=== PATIENT | female | born 1975 | race Caucasian/White ===

== ENCOUNTER 2020-09-19 17:15 | Emergency (ER) | payer BC, SELFPAY ==
[2020-09-19] VITALS (9 sets, daily range): BP systolic 130–165; BP diastolic 76–91; PULSE 77–132; RESP 16–35; TEMP 37.2; O2SAT 97–100
[2020-09-19] MEDS: ONDANSETRON 4 MG/2 ML INJ ×2 (17:52→19:21)
[2020-09-19 17:53] LABS: Add Manual Diff / Slide Review NO; Basophils Absolute Auto 100 /uL (0-100); Basophils Percent Auto 0.7 % (0-2); Eosinophils Absolute Auto 100 /uL (0-450); Eosinophils Percent Auto 0.4 % (2-4); Hematocrit 46.4 % (36-46); Hemoglobin 15.7 g/dL (12.0-16.0); Lymphocytes Absolute Auto 3300 /uL (1100-4500); Lymphocytes Percent Auto 16.5 % (25-40); Mean Corpuscular HGB Conc 33.9 % (30-36); Mean Corpuscular Hemoglobin 28.6 PG (26-34); Mean Corpuscular Volume 84.2 fL (80-100); Monocytes Absolute Auto 1400 /uL (0-900); Monocytes Percent Auto 7.2 % (3-14); Neutrophils Absolute Auto 15000 /uL (1500-7000); Neutrophils Percent Auto 75.2 % (50-75); Platelet Count 400 X10^3/uL (150-400); Red Blood Cell Count 5.51 X10^6/uL (4.0-5.2); Red Cell Distribution Width 15.3 % (11.6-14.8)
[2020-09-19 17:59] LABS: INR 1.2 (0.9-1.3); Prothrombin Time 13.7 SECONDS (10.1-12.7)
[2020-09-19 18:02] LABS: PTT Partial Thromboplastin Tim 38 SECONDS (26.4-36.2)
[2020-09-19 18:04] LABS: Alanine Aminotransferase 12 IU/L (<35); Alkaline Phosphatase 119 U/L (38-126); Aspartate Aminotransferase 45 IU/L (14-36); Bilirubin Total 0.9 mg/dL (0.2-1.3); Blood Urea Nitrogen 20 mg/dL (7-17); Calcium 10.4 mg/dL (8.4-10.2); Carbon Dioxide 19 mmol/L (22-32); Chloride 100 mmol/L (98-107); Estimated Glomerular Filt Rate > 60.0 mL/min (>60); Globulin 4.8 g/dL (1.7-4.1); Glucose 127 mg/dL (70-100); HEMOLYSIS 26 (0-50); Potassium 3.8 mmol/L (3.4-5.1); Sodium 135 mmol/L (137-145)
--- NOTE | 2020-09-19 18:05 | ED.GENADULT ---
HPI - General Adult General Chief complaint: Abdominal Pain Stated complaint: NOT ABLE TO HOLD THINGS DOWN GREEN STUFF Time Seen by Provider: 09/19/20 17:59 Source: patient Mode of arrival: Ambulatory Limitations: no limitations History of Present Illness HPI narrative: Patient is a 45-year-old female. Patient states she has had pancreatitis in the past has been diagnosed with chronic pancreatitis. She is new to the area (within the past 90 days) does not have a primary doctor in this area. States that she started having pain in her epigastrium worse than normal over the past several days. States it feels like her prior diagnosis of pancreatitis. She also states she has had pseudocyst in the past. Denies any fevers but states she has had a difficult time holding anything down to include fluids and solid food. Had a prescription for Zofran at home but ran out of this medicine. Has been vomiting several different colors and textures of stuff over the past several days. She is on Eliquis secondary to ?blood clots? 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 Related Data Home Medications Medication Instructions Recorded Confirmed acetaminophen [Tylenol] 1,000 mg PO BEDTIME 09/19/20 09/19/20 alprazolam [Xanax] 0.5 mg PO Q4HR PRN 09/19/20 09/19/20 amlodipine 10 mg PO DAILY 09/19/20 09/19/20 apixaban [Eliquis] 5 mg PO BID 09/19/20 09/19/20 diphenhydramine HCl 50 mg PO BEDTIME PRN 09/19/20 09/19/20 hydroxyzine HCl 75 mg PO TID PRN 09/19/20 09/19/20 [id number] [Creon] 1 cap PO TID 09/19/20 09/19/20 losartan 50 mg PO BID 09/19/20 09/19/20 ondansetron 4 mg PO Q6H PRN 09/19/20 09/19/20 oxycodone-acetaminophen 1 tab PO Q4-6H PRN 09/19/20 09/19/20 pantoprazole [Protonix] 40 mg PO DAILY 09/19/20 09/19/20 senna-docusate sodium [Senna Plus 1 tab PO BEDTIME 09/19/20 09/19/20 (senna-docusate)] Previous Rx's Medication Instructions Recorded hydrocodone-acetaminophen [[place]] 1 tab PO Q6H PRN #7 tab 09/19/20 ondansetron 4 mg PO Q6H PRN #10 tab 09/19/20 Review of Systems Constitutional Constitutional: Denies fever(s) and Denies headache(s) ENT Ears, Nose, Mouth, and Throat: Denies headache(s) Cardiovascular Cardiovascular: Denies chest pain and Denies dyspnea Respiratory Respiratory: Denies dyspnea Gastrointestinal Gastrointestinal: Reports abdominal pain, Denies change in bowel habits, Reports nausea and Reports vomiting Genitourinary Genitourinary: Denies dysuria Genitourinary: Denies dysuria Musculoskeletal Musculoskeletal: Denies arthralgias and Denies myalgias Integumentary/Breasts Skin/Breast: Denies rash Neurologic Neurologic: Denies behavioral changes and Denies headache(s) Psychiatric Psychiatric: Denies behavioral changes Hematologic/Lymphatic Comments: On anticoagulation Allergic/Immunologic Allergic/Immunologic: Denies urticaria Patient History Medical History Chronic pancreatitis Social History Smoking Status: Current every day smoker Smoking Status: Current every day smoker Exam Initial Vital Signs Initial Vital Signs: Vital Signs Temperature 99.0 F 09/19/20 17:20 Pulse Rate 132 H 09/19/20 17:20 Respiratory Rate 22 09/19/20 17:20 Blood Pressure 156/87 H 09/19/20 17:20 Pulse Oximetry 99 09/19/20 17:20 Const General: cooperative Limitations: mental status not altered [facility] Head: normal to inspection and normocephalic Resp Effort & Inspection: normal respiratory effort Auscultation: clear to auscultation bilaterally Cardio Rate: tachycardic Rhythm: regular rhythm Pulses: radial pulses present GI Inspection: non-distended Palpation: No firm and tender (Epigastric, left upper quadrant) Skin Lesions: no lesions Rashes: no rashes Neuro General: patient alert Cognition: normal cognition Speech: speech normal Extrem General: normal to inspection and capillary refill normal Psych Appearance: grossly normal and well kempt Scores GCS [place] coma scale eye opening: Spontaneous Nelda coma scale verbal response: Orientated Homeland coma scale motor response: Obey commands Homeland coma scale total score: 15 Course Orders Ordered: ED Orders 09/19/20 17:27 EKG-12 Lead Stat 09/19/20 17:43 Complete Blood Count AUTO DIFF Stat Comprehensive Metabolic Panel Stat Ethanol (ETOH) Stat Lactate (Lactic Acid) Stat Lipase Stat Partial Thromboplastin Time Stat Prothrombin Time INR Stat 09/19/20 18:44 CT abdomen pelvis w con Stat Discontinued Medications Hydrocodone Bitart/Acetaminophen (Hydrocodone/Acet 5/325 Prepack) 1 bottle MISC SEEINSTR ONE Stop: 09/19/20 20:11 Last Admin: 09/19/20 20:23 Dose: 1 bottle Documented by: RADHA Sodium Chloride (Normal Saline 0.9%) 1,000 mls @ 1,000 mls/hr IV BOLUS ONE Stop: 09/19/20 19:05 Last Infusion: 09/19/20 20:15 Dose: 0 mls/hr Documented by: Admin: 09/19/20 18:17 Dose: 1,000 mls/hr Documented by: RADHA Morphine Sulfate (Morphine 4 Mg/Ml Inj) 4 mg IV NOW ONE Stop: 09/19/20 18:07 Last Admin: 09/19/20 18:16 Dose: 4 mg Documented by: RADHA Morphine Sulfate (Morphine 4 Mg/Ml Inj) 4 mg IV NOW ONE Stop: 09/19/20 19:12 Last Admin: 09/19/20 19:21 Dose: 4 mg Documented by: RADHA Ondansetron HCl (Ondansetron 4 Mg Odt Prepack) 1 bottle MISC SEEINSTR ONE Stop: 09/19/20 20:11 Last Admin: 09/19/20 20:23 Dose: 1 bottle Documented by: RADHA Vital Signs Vital signs: Vital Signs - 8 hr 09/19/20 17:20 09/19/20 17:30 09/19/20 17:31 Temperature 99.0 F Pulse Rate 132 H 104 H 99 H Respiratory Rate 22 32 H 18 Blood Pressure 156/87 H 149/91 H Pulse Oximetry 99 99 97 09/19/20 18:00 09/19/20 18:30 09/19/20 19:09 Temperature Pulse Rate 87 82 94 H Respiratory Rate 16 24 18 Blood Pressure 147/86 H 164/86 H Pulse Oximetry 99 97 100 09/19/20 19:24 09/19/20 19:30 09/19/20 20:00 Temperature Pulse Rate 91 H 86 77 Respiratory Rate 35 H 21 20 Blood Pressure 165/91 H 130/76 146/79 H Pulse Oximetry 98 99 99 Medical Decision Making Lab Data Lab results reviewed: Yes I reviewed the patient's lab results. Result diagrams: 09/19/20 17:43 09/19/20 17:43 Labs: Lab Results 09/19/20 09/19/20 09/19/20 Range/Units 17:43 17:43 17:43 WBC 20.0 H (4.5-11.0) X10^3/uL RBC 5.51 H (4.0-5.2) X10^6/uL Hgb 15.7 (12.0-16.0) g/dL Hct 46.4 H (36-46) % MCV 84.2 (80-100) fL MCH 28.6 (26-34) PG MCHC 33.9 (30-36) % RDW 15.3 H (11.6-14.8) % Plt Count 400 (150-400) X10^3/uL Neut % (Auto) 75.2 H (50-75) % Lymph % (Auto) 16.5 L (25-40) % Davison % (Auto) 7.2 (3-14) % Eos % (Auto) 0.4 L (2-4) % Baso % (Auto) 0.7 (0-2) % Neut # (Auto) 63777 H (0249-3103) /uL Lymph # (Auto) 3300 (5262-8760) /uL Davison # (Auto) 1400 H (0-900) /uL Eos # (Auto) 100 (0-450) /uL Baso # (Auto) 100 (0-100) /uL PT 13.7 H (10.1-12.7) SECONDS INR 1.2 (0.9-1.3) APTT 38 H (26.4-36.2) SECONDS Sodium 135 L (137-145) mmol/L Potassium 3.8 (3.4-5.1) mmol/L Chloride 100 (98-107) mmol/L Carbon Dioxide 19 L (22-32) mmol/L BUN 20 H (7-17) mg/dL Creatinine 0.87 (0.52-1.04) mg/dL Estimated GFR > 60.0 (>60) mL/min BUN/Creatinine Ratio 23.0 H (6-22) Glucose 127 H (70-100) mg/dL Lactate (0.7-2.1) mmol/L Calcium 10.4 H (8.4-10.2) mg/dL Total Bilirubin 0.9 (0.2-1.3) mg/dL AST 45 H (14-36) IU/L ALT 12 (<35) IU/L Alkaline Phosphatase 119 (38-126) U/L Total Protein 9.8 H* (6.3-8.2) g/dL Albumin 5.0 (3.5-5.0) g/dL Globulin 4.8 H (1.7-4.1) g/dL Albumin/Globulin Ratio 1.0 (1.0-2.8) Lipase 4634 H (23-300) U/L Ethyl Alcohol ( - 10) mg/dL 09/19/20 09/19/20 Range/Units 17:43 17:43 WBC (4.5-11.0) X10^3/uL RBC (4.0-5.2) X10^6/uL Hgb (12.0-16.0) g/dL Hct (36-46) % MCV (80-100) fL MCH (26-34) PG MCHC (30-36) % RDW (11.6-14.8) % Plt Count (150-400) X10^3/uL Neut % (Auto) (50-75) % Lymph % (Auto) (25-40) % Davison % (Auto) (3-14) % Eos % (Auto) (2-4) % Baso % (Auto) (0-2) % Neut # (Auto) (9186-8632) /uL Lymph # (Auto) (8743-8742) /uL Davison # (Auto) (0-900) /uL Eos # (Auto) (0-450) /uL Baso # (Auto) (0-100) /uL PT (10.1-12.7) SECONDS INR (0.9-1.3) APTT (26.4-36.2) SECONDS Sodium (137-145) mmol/L Potassium (3.4-5.1) mmol/L Chloride (98-107) mmol/L Carbon Dioxide (22-32) mmol/L BUN (7-17) mg/dL Creatinine (0.52-1.04) mg/dL Estimated GFR (>60) mL/min BUN/Creatinine Ratio (6-22) Glucose (70-100) mg/dL Lactate 1.1 (0.7-2.1) mmol/L Calcium (8.4-10.2) mg/dL Total Bilirubin (0.2-1.3) mg/dL AST (14-36) IU/L ALT (<35) IU/L Alkaline Phosphatase (38-126) U/L Total Protein (6.3-8.2) g/dL Albumin (3.5-5.0) g/dL Globulin (1.7-4.1) g/dL Albumin/Globulin Ratio (1.0-2.8) Lipase (23-300) U/L Ethyl Alcohol < 10 ( - 10) mg/dL Imaging Data CT scan - abdomen/pelvis: Radiologist's Impression: [address] Scan ReportSigned Patient: Brigid Otero [facility]#: [id number]: 1975Acct:[id number]/Sex: 45 / FDate of Service: 09/19/20Loc: EDAccession Number: [id number] Procedure: CT abdomen pelvis w con Ordering Provider: Issac Mak D.O. PROCEDURE: CT ABDOMEN PELVIS W CON INDICATIONS: Epigastric, LUQ abdominal pain, history of pseudocyst TECHNIQUE: After the administration of intravenous contrast, 5 mm thick sections acquired from the diaphragm to the symphysis. 5 mm coronal and sagittal reformats were acquired. For radiation dose reduction, the following was used: automated exposure control, adjustment of mA and/or kV according to patient size. COMPARISON: None. FINDINGS: Image quality: Excellent. ABDOMEN: Lung bases: Lung bases are clear. Heart size is normal. Solid organs: Liver is normal in size and enhancement. Gallbladder is within normal limits . Biliary system is non dilated. There is severe peripancreatic fat stranding. Multiple fluid intensity foci within the pancreas are present, largest of which is within the pancreatic body/tail junction measuring 20 mm diameter. There is dilatation of the pancreatic duct within the body and tail, with a maximal diameter of roughly 4 mm. There is probable pancreas divisum. Spleen is normal in size and enhancement. No adrenal nodules. Kidneys demonstrate normal size and enhancement, without hydronephrosis. Peritoneum and bowel: Bowel loops demonstrate normal wall thickness and caliber. No free fluid or air. Nodes and vessels: No retroperitoneal or mesenteric adenopathy by size criteria. Aorta and inferior vena cava are normal in size. Miscellaneous: No ventral hernias. PELVIS: Genitourinary: Bladder wall thickness is normal. Miscellaneous: No inguinal hernias or adenopathy. Bones: No suspicious bony lesions. No vertebral body compression fractures. IMPRESSION: 1. Acute pancreatitis. 2. Multiple low-density foci within the pancreas, compatible with sequelae of prior pancreatitis with pseudocyst formation. 3. Pancreatic ductal dilatation. 4. No loculated peripancreatic fluid collection to indicate abscess. 5. Follow-up pancreatic protocol MRI with and without intravenous contrast is recommended after resolution of pancreatitis, to exclude underlying neoplasm. Dictated by: Katarina Davenport M.D. on 09/19/2020 at 19:21 Approved by: Katarina Davenport M.D. on 09/19/2020 at 19:24 ECG Data Attestation: I personally reviewed and interpreted this ECG as follows: Prior ECG tracings: not available for review Interpretation: Sinus rhythm Ventricular rate 99 Incomplete right bundle-branch block Normal axis No ST T wave changes MDM Narrative Medical decision making narrative: Patient does have a leukocytosis and was initially tachycardic however the tachycardia improved after fluids and time here in the ER and pain medicine. The CT scan was concerning for acute pancreatitis and also has pseudocyst with the patient knows about. Does have an elevated lipase. Normal bilirubin. She is anticoagulated for what appears to be a portal venous thrombosis from 100% sure this is the patient did know the diagnosis. I did discuss with her options to include coming into the emergency department versus home treatment. I offered her admission to the hospital given the fact that she does have a leukocytosis and findings consistent with pancreatitis however she wanted to try to tolerate oral fluids in the room now that her pain was controlled after medications. She was able to tolerate oral intake. Patient stated that she would like to try home treatment of her pancreatitis with nausea and pain medication. She understands that if her symptoms worsen or she develops new symptoms she needs to return to the emergency department. She was sent home with nausea and pain medicine. She was given strict return precautions. She expressed understanding and agreement. Discharge Plan Departure Patient Disposition: Home Clinical Impression: Pancreatitis Instructions: Acute Pancreatitis Activity Restrictions/Additional Instructions: Recommend taking the medications as directed. Recommend with a clear liquid diet to stay hydrated and then as your pain improves advancing your diet slowly until you are back eating normally. I recommend that you find a primary provider here in the area. This [facility] has a health resources coordinator at [phone]. You Can contact this individual during business hours to help you establish a primary provider. Return to the emergency department for any new or worsening symptoms Prescriptions: New ondansetron 4 mg tablet,disintegrating 4 mg PO Q6H PRN (Reason: nausea and vomiting) Qty: 10 RF: 0 hydrocodone-acetaminophen [[place]] 5-325 mg tablet 1 tab PO Q6H PRN (Reason: pain) Qty: 7 RF: 0 No Action losartan 50 mg Tablet 50 mg PO BID RF: 0 acetaminophen [Tylenol] 325 mg Tablet 1,000 mg PO BEDTIME RF: 0 diphenhydramine HCl 50 mg Tablet 50 mg PO BEDTIME PRN (Reason: Sleep) RF: 0 alprazolam [Xanax] 0.5 mg Tablet 0.5 mg PO Q4HR PRN (Reason: Anxiety) RF: 0 oxycodone-acetaminophen 10-325 mg Tablet 1 tab PO Q4-6H PRN (Reason: Pain (Scale Score 7-10)) RF: 0 amlodipine 10 mg Tablet 10 mg PO DAILY RF: 0 pantoprazole [Protonix] 40 mg Tablet,Delayed Release (Dr/Ec) 40 mg PO DAILY RF: 0 hydroxyzine HCl 25 mg Tablet 75 mg PO TID PRN (Reason: Anxiety) RF: 0 ondansetron 4 mg Tablet,Disintegrating 4 mg PO Q6H PRN (Reason: Nausea) RF: 0 Senna Plus (senna-docusate) Tablet 1 tab PO BEDTIME RF: 0 Creon 24,000-76,000 -120,000 unit Capsule,Delayed Release(Dr/Ec) 1 cap PO TID RF: 0 Eliquis 5 mg Tablet 5 mg PO BID RF: 0
[2020-09-19 18:06] LABS: Total Protein 9.8 g/dL (6.3-8.2)
[2020-09-19 18:16] LABS: Lactate (Lactic Acid) 1.1 mmol/L (0.7-2.1)
[2020-09-19] MEDS: MORPHINE 4 MG/ML INJ IV ×2 (18:16→19:21)
[2020-09-19] MEDS: SODIUM CHLORIDE 0.9% 1,000 ML 1000 ML IV (18:17)
[2020-09-19 18:23] LABS: Lipase 4634 U/L (23-300)
[2020-09-19 18:27] LABS: Ethanol (ETOH) < 10 mg/dL
--- NOTE | 2020-09-19 18:44 | DI.CT.S_ITS ---
PROCEDURE: CT ABDOMEN PELVIS W CON INDICATIONS: Epigastric, LUQ abdominal pain, history of pseudocyst TECHNIQUE: After the administration of intravenous contrast, 5 mm thick sections acquired from the diaphragm to the symphysis. 5 mm coronal and sagittal reformats were acquired. For radiation dose reduction, the following was used: automated exposure control, adjustment of mA and/or kV according to patient size. COMPARISON: None. FINDINGS: Image quality: Excellent. ABDOMEN: Lung bases: Lung bases are clear. Heart size is normal. Solid organs: Liver is normal in size and enhancement. Gallbladder is within normal limits . Biliary system is non dilated. There is severe peripancreatic fat stranding. Multiple fluid intensity foci within the pancreas are present, largest of which is within the pancreatic body/tail junction measuring 20 mm diameter. There is dilatation of the pancreatic duct within the body and tail, with a maximal diameter of roughly 4 mm. There is probable pancreas divisum. Spleen is normal in size and enhancement. No adrenal nodules. Kidneys demonstrate normal size and enhancement, without hydronephrosis. Peritoneum and bowel: Bowel loops demonstrate normal wall thickness and caliber. No free fluid or air. Nodes and vessels: No retroperitoneal or mesenteric adenopathy by size criteria. Aorta and inferior vena cava are normal in size. Miscellaneous: No ventral hernias. PELVIS: Genitourinary: Bladder wall thickness is normal. Miscellaneous: No inguinal hernias or adenopathy. Bones: No suspicious bony lesions. No vertebral body compression fractures. IMPRESSION: 1. Acute pancreatitis. 2. Multiple low-density foci within the pancreas, compatible with sequelae of prior pancreatitis with pseudocyst formation. 3. Pancreatic ductal dilatation. 4. No loculated peripancreatic fluid collection to indicate abscess. 5. Follow-up pancreatic protocol MRI with and without intravenous contrast is recommended after resolution of pancreatitis, to exclude underlying neoplasm. Dictated by: Katarina Davenport M.D. on 09/19/2020 at 19:21 Approved by: Katarina Davenport M.D. on 09/19/2020 at 19:24
[2020-09-19] MEDS: ONDANSETRON 4 MG ODT PREPACK 1 BOTTLE MISC (20:23)
[2020-09-19] MEDS: HYDROCODONE/ACET 5/325 PREPACK 1 BOTTLE MISC (20:23)
== END 2020-09-19 20:29 | disposition home or self-care (01) ==
PROVIDERS: Emergency Medicine; Emergency Provider Emergency Medicine
DX: K85.90 Acute pancreatitis without necrosis or infection, unspecified (principal); K86.1 Other chronic pancreatitis; Z79.01 Long term (current) use of anticoagulants; R10.9 Unspecified abdominal pain; D72.829 Elevated white blood cell count, unspecified; R00.0 Tachycardia, unspecified; R10.13 Epigastric pain; R10.12 Left upper quadrant pain
CPT/HCPCS: 36415; 74177; 80053; 80320; 83605; 83690; 85025; 85610; 85730; 93005; 96361; 96374; 96375; 96376; 99284; J2270; J2405

== ENCOUNTER 2020-09-21 19:21 | Observation (INO) | payer BC, SELFPAY ==
[2020-09-21] VITALS (8 sets, daily range): BP systolic 104–135; BP diastolic 65–76; PULSE 75–94; RESP 16; TEMP 36.5–37.1; O2SAT 98–100; BMI 26.5; BMI 28.0
[2020-09-21 20:05] LABS: Add Manual Diff / Slide Review NO; Basophils Absolute Auto 200 /uL (0-100); Basophils Percent Auto 0.9 % (0-2); Eosinophils Absolute Auto 500 /uL (0-450); Eosinophils Percent Auto 2.7 % (2-4); Hematocrit 44.9 % (36-46); Hemoglobin 15.2 g/dL (12.0-16.0); Lymphocytes Absolute Auto 3700 /uL (1100-4500); Lymphocytes Percent Auto 22.3 % (25-40); Mean Corpuscular HGB Conc 33.7 % (30-36); Mean Corpuscular Hemoglobin 28.6 PG (26-34); Mean Corpuscular Volume 84.9 fL (80-100); Monocytes Absolute Auto 1000 /uL (0-900); Neutrophils Absolute Auto 11400 /uL (1500-7000); Neutrophils Percent Auto 68.1 % (50-75); Platelet Count 343 X10^3/uL (150-400); Red Blood Cell Count 5.29 X10^6/uL (4.0-5.2); Red Cell Distribution Width 15.2 % (11.6-14.8); White Blood Cell Count 16.7 X10^3/uL (4.5-11.0)
[2020-09-21 20:16] LABS: INR 1.2 (0.9-1.3); Prothrombin Time 14.1 SECONDS (10.1-12.7)
[2020-09-21 20:19] LABS: PTT Partial Thromboplastin Tim 40 SECONDS (26.4-36.2)
[2020-09-21 20:22] LABS: Alanine Aminotransferase 12 IU/L (<35); Albumin 4.8 g/dL (3.5-5.0); Alkaline Phosphatase 107 U/L (38-126); Aspartate Aminotransferase 47 IU/L (14-36); BUN Creatinine Ratio 24.3 (6-22); Bilirubin Total 0.6 mg/dL (0.2-1.3); Blood Urea Nitrogen 18 mg/dL (7-17); Calcium 9.9 mg/dL (8.4-10.2); Carbon Dioxide 21 mmol/L (22-32); Chloride 100 mmol/L (98-107); Estimated Glomerular Filt Rate > 60.0 mL/min (>60); Globulin 4.7 g/dL (1.7-4.1); Glucose 84 mg/dL (70-100); HEMOLYSIS 23 (0-50); Lipase 1901 U/L (23-300); Potassium 3.9 mmol/L (3.4-5.1); Sodium 134 mmol/L (137-145); Total Protein 9.5 g/dL (6.3-8.2)
--- NOTE | 2020-09-21 20:45 | ED.GENADULT ---
HPI - General Adult General Chief complaint: Abdominal Pain Stated complaint: abdominal pain, vomitting Time Seen by Provider: 09/21/20 19:51 Source: patient Mode of arrival: Ambulatory Limitations: no limitations History of Present Illness HPI narrative: Patient is a 45-year-old female who I evaluated in the emergency department a couple days ago for similar symptoms that she returns with today. She does have a history of chronic pancreatitis. Does not have a primary doctor in this area. A couple days ago when I saw her she presented stating that she had pancreatitis. Had a CT scan showing pseudocysts and inflammation consistent with pancreatitis. Her lipase was elevated. She also had a leukocytosis. During that visit we did discuss admitting her to the hospital however she was able to tolerate oral intake and felt she could be discharged home with symptom treatment. After being discharged she stated that she has not been drinking very much. States that when she does drink a causes her discomfort. She is also quite a bit of nausea and has been unable to take her pain medication. No fevers. Related Data Home Medications Medication Instructions Recorded Confirmed alprazolam [Xanax] 1 mg PO TID PRN 09/19/20 09/21/20 amlodipine 10 mg PO DAILY 09/19/20 09/21/20 apixaban [Eliquis] 5 mg PO BID 09/19/20 09/21/20 hydroxyzine HCl 75 mg PO TID PRN 09/19/20 09/21/20 losartan 50 mg PO BID 09/19/20 09/21/20 pantoprazole [Protonix] 40 mg PO DAILY 09/19/20 09/21/20 senna-docusate sodium [Senna Plus 1 tab PO BEDTIME 09/19/20 09/21/20 (senna-docusate)] trazodone 50 mg PO BEDTIME PRN 09/21/20 09/21/20 Allergies Allergy/AdvReac Type Severity Reaction Status Date / Time cortisone Allergy Verified 09/21/20 19:45 Review of Systems Constitutional Constitutional: Denies fever(s) Cardiovascular Cardiovascular: Denies chest pain and Denies dyspnea Respiratory Respiratory: Denies dyspnea Gastrointestinal Gastrointestinal: Reports abdominal pain, Denies change in bowel habits, Reports nausea and Reports vomiting Genitourinary Genitourinary: Denies dysuria Genitourinary: Denies dysuria Musculoskeletal Musculoskeletal: Denies arthralgias and Denies myalgias Integumentary/Breasts Skin/Breast: Denies rash Neurologic Neurologic: Denies behavioral changes Psychiatric Psychiatric: Denies behavioral changes Hematologic/Lymphatic Hematologic/Lymphatic: Denies easy bleeding and Denies easy bruising Allergic/Immunologic Allergic/Immunologic: Denies urticaria Patient History Medical History Chronic pancreatitis Social History household members: spouse Smoking Status: Current every day smoker alcohol intake: never Smoking Status: Current every day smoker alcohol intake frequency: other Substance Use Type: does not use Exam Initial Vital Signs Initial Vital Signs: Vital Signs Temperature 98.7 F 09/21/20 19:40 Pulse Rate 90 09/21/20 19:40 Respiratory Rate 16 09/21/20 19:40 Blood Pressure 104/67 09/21/20 19:40 Pulse Oximetry 98 09/21/20 19:40 Const General: cooperative, healthy appearing and No comfortable Limitations: mental status not altered HENNJ Head: normal to inspection and normocephalic Resp Effort & Inspection: normal respiratory effort Cardio Rate: regular rate GI Inspection: non-distended Palpation: soft and tender Skin Lesions: no lesions Rashes: no rashes Neuro General: patient alert and patient awake Cognition: normal cognition Speech: speech normal Extrem General: capillary refill normal Psych Appearance: grossly normal and well kempt Course Orders Ordered: ED Orders 09/21/20 19:47 Complete Blood Count AUTO DIFF Stat Comprehensive Metabolic Panel Stat Lipase Stat Partial Thromboplastin Time Stat Prothrombin Time INR Stat 09/21/20 21:00 Urine Microscopic Stat 09/21/20 21:12 COVID19 Stat Al Hydrox/Mg Hydrox/Simethicone (Mag Hydrox/Alum/Simeth 30 Ml Udc) 30 ml PO Q6HR PRN PRN Reason: Dyspepsia Alprazolam (Alprazolam 0.5 Mg Tablet) 1 mg PO TID PRN PRN Reason: Anxiety Last Admin: 09/21/20 23:54 Dose: 1 mg Documented by: HALI Amlodipine Besylate (Amlodipine 5 Mg Tablet) 10 mg PO DAILY COUNTS INCLUDE 234 BEDS AT THE [facility] Apixaban (Apixaban 5 Mg Tablet) 5 mg PO BID COUNTS INCLUDE 234 BEDS AT THE [facility] Last Admin: 09/21/20 22:54 Dose: 5 mg Documented by: SANTIAGO Docusate Sodium (Docusate 100 Mg Capsule) 100 mg PO BID PRN PRN Reason: constipation Docusate Sodium (Docusate 100 Mg Capsule) 100 mg PO BID COUNTS INCLUDE 234 BEDS AT THE [facility] Fentanyl (Fentanyl 100 Mcg/2 Ml Inj) 25 mcg 0.35 mcg/kg (25 mcg) IV Q1HR PRN PRN Reason: Pain, Severe (7-10) Stop: 09/22/20 22:00 Last Admin: 09/21/20 23:41 Dose: 25 mcg Documented by: HALI Hydroxyzine Pamoate (Hydroxyzine Pamoate 25 Mg Capsule) 75 mg PO TID PRN PRN Reason: Anxiety Lactated Ringer's (Lactated Ringers) 1,000 mls @ 340 mls/hr IV CONT GHISLAINE Stop: 09/23/20 22:14 Last Admin: 09/21/20 22:49 Dose: 340 mls/hr Documented by: SANTIAGO Losartan Potassium (Losartan 50 Mg Tablet) 50 mg PO BID COUNTS INCLUDE 234 BEDS AT THE [facility] Last Admin: 09/21/20 22:56 Dose: 50 mg Documented by: SANTIAGO Naloxone HCl (Naloxone 0.4 Mg/Ml Vial) 0.2 mg IV Q2MIN PRN PRN Reason: Opiate Reversal Ondansetron HCl (Ondansetron 4 Mg Odt) 4 mg PO Q8HR PRN PRN Reason: Nausea And Vomiting Last Admin: 09/21/20 23:41 Dose: 4 mg Documented by: HALI Pantoprazole Sodium (Pantoprazole 40 Mg Tablet) 40 mg PO DAILY COUNTS INCLUDE 234 BEDS AT THE [facility] Sennosides (Sennosides 8.6 Mg Tablet) 1 mg PO BID COUNTS INCLUDE 234 BEDS AT THE [facility] Trazodone HCl (Trazodone 50 Mg Tablet) 50 mg PO BEDTIME PRN PRN Reason: Insomnia Last Admin: 09/21/20 23:42 Dose: 50 mg Documented by: HALI Discontinued Medications Sodium Chloride (Normal Saline 0.9%) 1,000 mls @ 1,000 mls/hr IV BOLUS ONE Stop: 09/21/20 21:47 Last Infusion: 09/21/20 21:59 Dose: 0 mls/hr Documented by: Admin: 09/21/20 21:05 Dose: 1,000 mls/hr Documented by: KARLIE Morphine Sulfate (Morphine 4 Mg/Ml Inj) 4 mg IV NOW ONE Stop: 09/21/20 20:49 Last Admin: 09/21/20 21:05 Dose: 4 mg Documented by: KARLIE Ondansetron HCl (Ondansetron 4 Mg/2 Ml Inj) 4 mg IV NOW ONE Stop: 09/21/20 21:10 Last Admin: 09/21/20 21:15 Dose: 4 mg Documented by: KARLIE Vital Signs Vital signs: Vital Signs - 8 hr 09/21/20 19:40 09/21/20 21:08 09/21/20 21:22 Temperature 98.7 F Pulse Rate 90 89 80 Respiratory Rate 16 Blood Pressure 104/67 135/75 Pulse Oximetry 98 100 100 09/21/20 21:30 09/21/20 21:32 Temperature Pulse Rate 78 94 H Respiratory Rate Blood Pressure 128/65 Pulse Oximetry 100 98 Medical Decision Making Medical Records Medical records reviewed: Yes I reviewed the patient's medical records. Lab Data Lab results reviewed: Yes I reviewed the patient's lab results. Result diagrams: 09/21/20 19:47 09/21/20 19:47 Labs: Lab Results 09/21/20 09/21/20 09/21/20 Range/Units 19:47 19:47 19:47 WBC 16.7 H (4.5-11.0) X10^3/uL RBC 5.29 H (4.0-5.2) X10^6/uL Hgb 15.2 (12.0-16.0) g/dL Hct 44.9 (36-46) % MCV 84.9 (80-100) fL MCH 28.6 (26-34) PG MCHC 33.7 (30-36) % RDW 15.2 H (11.6-14.8) % Plt Count 343 (150-400) X10^3/uL Neut % (Auto) 68.1 (50-75) % Lymph % (Auto) 22.3 L (25-40) % [place] % (Auto) 6.0 (3-14) % Eos % (Auto) 2.7 (2-4) % Baso % (Auto) 0.9 (0-2) % Neut # (Auto) 15754 H (6660-7237) /uL Lymph # (Auto) 3700 (3835-1463) /uL [place] # (Auto) 1000 H (0-900) /uL Eos # (Auto) 500 H (0-450) /uL Baso # (Auto) 200 H (0-100) /uL PT 14.1 H (10.1-12.7) SECONDS INR 1.2 (0.9-1.3) APTT 40 H (26.4-36.2) SECONDS Sodium 134 L (137-145) mmol/L Potassium 3.9 (3.4-5.1) mmol/L Chloride 100 (98-107) mmol/L Carbon Dioxide 21 L (22-32) mmol/L BUN 18 H (7-17) mg/dL Creatinine 0.74 (0.52-1.04) mg/dL Estimated GFR > 60.0 (>60) mL/min BUN/Creatinine Ratio 24.3 H (6-22) Glucose 84 (70-100) mg/dL Calcium 9.9 (8.4-10.2) mg/dL Total Bilirubin 0.6 (0.2-1.3) mg/dL AST 47 H (14-36) IU/L ALT 12 (<35) IU/L Alkaline Phosphatase 107 (38-126) U/L Total Protein 9.5 H (6.3-8.2) g/dL Albumin 4.8 (3.5-5.0) g/dL Globulin 4.7 H (1.7-4.1) g/dL Albumin/Globulin Ratio 1.0 (1.0-2.8) Lipase 1901 H D (23-300) U/L Urine RBC (0-5/HPF) Urine WBC (0-5/HPF) Ur Squamous Epith Cells (0-5/HPF) Urine Bacteria (None) Ur Culture Indicated? COVID-19 PCR (Negative) 09/21/20 09/21/20 Range/Units 21:00 21:12 WBC (4.5-11.0) X10^3/uL RBC (4.0-5.2) X10^6/uL Hgb (12.0-16.0) g/dL Hct (36-46) % MCV (80-100) fL MCH (26-34) PG MCHC (30-36) % RDW (11.6-14.8) % Plt Count (150-400) X10^3/uL Neut % (Auto) (50-75) % Lymph % (Auto) (25-40) % [place] % (Auto) (3-14) % Eos % (Auto) (2-4) % Baso % (Auto) (0-2) % Neut # (Auto) (7433-9804) /uL Lymph # (Auto) (1447-4050) /uL [place] # (Auto) (0-900) /uL Eos # (Auto) (0-450) /uL Baso # (Auto) (0-100) /uL PT (10.1-12.7) SECONDS INR (0.9-1.3) APTT (26.4-36.2) SECONDS Sodium (137-145) mmol/L Potassium (3.4-5.1) mmol/L Chloride (98-107) mmol/L Carbon Dioxide (22-32) mmol/L BUN (7-17) mg/dL Creatinine (0.52-1.04) mg/dL Estimated GFR (>60) mL/min BUN/Creatinine Ratio (6-22) Glucose (70-100) mg/dL Calcium (8.4-10.2) mg/dL Total Bilirubin (0.2-1.3) mg/dL AST (14-36) IU/L ALT (<35) IU/L Alkaline Phosphatase (38-126) U/L Total Protein (6.3-8.2) g/dL Albumin (3.5-5.0) g/dL Globulin (1.7-4.1) g/dL Albumin/Globulin Ratio (1.0-2.8) Lipase (23-300) U/L Urine RBC None seen (0-5/HPF) Urine WBC None seen (0-5/HPF) Ur Squamous Epith Cells 0-1 /hpf (0-5/HPF) Urine Bacteria None seen (None) Ur Culture Indicated? Cult not indicated COVID-19 PCR Negative (Negative) Point of Care Testing Test Results Negative Urine Dip Bedside Urine Glucose Negative Bedside Urine Bilirubin - Negative Bedside Urine Ketone + 15 Urine Specific [place] 1.010 Bedside Urine Occult Blood - Negative Bedside Urine pH 6 Bedside Urine Protein - Negative Bedside Urine Urobilinogen - Negative Bedside Urine Nitrite - Negative Bedside Urine Leukocytes - Negative Esterase Point of care testing: Point of Care Testing Test Results Negative Urine Dip Bedside Urine Glucose Negative Bedside Urine Bilirubin - Negative Bedside Urine Ketone + 15 Urine Specific [place] 1.010 Bedside Urine Occult Blood - Negative Bedside Urine pH 6 Bedside Urine Protein - Negative Bedside Urine Urobilinogen - Negative Bedside Urine Nitrite - Negative Bedside Urine Leukocytes - Negative Esterase MDM Narrative Medical decision making narrative: Patient's leukocytosis and lipase improving however she is still having quite a bit of abdominal pain and unable to tolerate oral intake or tolerate her pain medication. A few given her history and her presentation today despite the improvement in her labs that she has failed outpatient attempted treating her pancreatitis. Field admission is necessary for pain medication and IV fluids. Discussed the case with LORI Eng the [facility] provider who will admit for further evaluation and treatment. I did discuss the admission with the patient. She expressed understanding. Discharge Plan Departure Patient Disposition: Admitted As Inpatient Clinical Impression: Pancreatitis Admit Date/Time: 09/21/20 21:32 Admit Provider: Evelyn Eng
[2020-09-21] MEDS: SODIUM CHLORIDE 0.9% 1,000 ML 1000 ML IV (21:05)
[2020-09-21] MEDS: MORPHINE 4 MG/ML INJ IV (21:05)
[2020-09-21 21:14] LABS: Bacteria Urine None Seen; RBC Urine None Seen (0-5/HPF); WBC Urine None Seen (0-5/HPF)
[2020-09-21] MEDS: ONDANSETRON 4 MG/2 ML INJ IV (21:15)
[2020-09-21 21:29] LABS: Culture Indicated Urine Cult Not Indicated; Squamous Epithelial Cell Urine 0-1 /HPF (0-5/HPF)
[2020-09-21 21:37] LABS: COVID19 -Nasal RAPID Negative (Negative)
[2020-09-21] MEDS: LACTATED RINGERS 1,000 ML 340 ML IV (22:49)
[2020-09-21] MEDS: APIXABAN 5 MG TABLET PO (22:54)
[2020-09-21] MEDS: LOSARTAN 50 MG TABLET PO (22:56)
[2020-09-21] MEDS: ONDANSETRON 4 MG ODT PO (23:41)
[2020-09-21] MEDS: fentaNYL 100 MCG/2 ML INJ 25 MCG IV (23:41)
[2020-09-21] MEDS: TRAZODONE 50 MG TABLET PO (23:42)
[2020-09-21] MEDS: ALPRAZolam 0.5 MG TABLET 1 MG PO (23:54)
[2020-09-22] VITALS (7 sets, daily range): BP systolic 104–135; BP diastolic 59–75; PULSE 68–92; RESP 16; TEMP 36.1–36.8; O2SAT 96–100
[2020-09-22] MEDS: fentaNYL 100 MCG/2 ML INJ 25 MCG IV ×4 (01:55→06:25)
[2020-09-22] MEDS: MAG HYDROX/ALUM/SIMETH 30 ML UDC PO (01:55)
[2020-09-22] MEDS: hydrOXYzine pamoate 25 MG CAPSULE 75 MG PO (01:55)
[2020-09-22] MEDS: LACTATED RINGERS 1,000 ML 340 ML IV ×3 (01:56→08:18)
--- NOTE | 2020-09-22 02:18 | P.HP_ITS ---
History of Present Illness History of Present Illness Date Patient Seen: 09/21/20 Time Patient Seen: 23:33 Chief complaint: abdominal pain, vomitting Narrative: Patient is a 45-year-old female Brigid Otero who presented to the emergency department for an acute flare of her chronic pancreatitis severe abd pain, nausea, vomiting that had failed out patient management and has been unable to keep foods & fluids down x 3 days. Patient was seen and treated in the emergency room for this exacerbation on 09/19/2020. At that time her CT scan showing pseudocysts and inflammation consistent with pancreatitis, elevated lipase, and leukocytosis. Because she was able to tolerate oral intake she felt she could be discharged home with symptom treatment. She returned today to the emergency room due to worsening condition, abdominal pain and inability to keep food or fluid down. Patient was previously living in [place] and was diagnosed with chronic pancreatitis and HTN April 2020, in May of 2020 she was also found to have blood clots in the main portal vein, splenic, and superior mesenteric and now is on apixaban [address] in May in [place] demonstrated pseudocysts on her pancreas, and she was recommended to repeat her CT in November of 2020 for monitoring. Patient is taking [address] [place] 4 Capsules a pancreatic enzyme, amlodipine, losartan, Protonix, and for anxiety Ativan, trazodone, and Vistaril. Patient is admitted for exacerbation of chronic pancreatitis. Patient states she has been unable to keep down food or fluids x3 days, with severe and worsening abdominal pain epigastric that radiates around to her left and right side to her back and in between her shoulder blades. She complains of Nausea and vomiting x5 days, she states that putting pressure on her pancreas by leaning forward and heating pad had been helping but treatment failure began about 3 days ago, she denies fever body aches chills but does note positive cold sweats with hot flashes due to 2010 hysterectomy. She denies any recent blood in urine or stool, coffee-ground vomitus or black tarry stool but noted some brownish blood in vomit once within the past week. She notes that she has been having bouts of dizziness when going from sitting to standing and often after walking for long periods of time, she also has suffered since July with on and off tachycardia documented in the 160s and has felt irregular heart rate she notes that for the past 6 months she has began to fall more often when getting out of her camper to which she has now using a walker if her is not present to hold her hand. Patient expresses believes that she has increased weakness on the left side. She also notes that she has had to short events of 1-2 minutes of right-sided facial numbness and tingling and difficulty with speech twice in the past 2 months. Patient was extremely hypertensive prior to April of 2020 and now suffers from chronically hypotension due to blood pressure medication. Patient states last cardiac workup was in 2006 and was unremarkable , and does not have a deckhand fishing vessel or neurologist. Patient did go to [facility] in July after moving from floor to meet with a physician to try to establish care but did not follow-up because she felt it was too far away for her to travel. At this time patient does not have any PCP or customs import specialist. Patient denies cough shortness of breath or chest pain, patient denies any abnormal swelling of hands or feet, any abnormal bruising bleeding or wound healing. Patient had WBC 16.7, RBC 5.29, BUN 18, lipase 1901 down from 4634 on 09/19/2020, bicarb 21, total protein 9.5. Patient History Medical History (Updated 09/22/20 @ 03:14 by ROSINA Ness-ERMA) Anxiety Benign essential HTN Chronic pancreatitis Pancreatic pseudocyst Surgical History (Updated 09/22/20 @ 03:14 by ROSINA Ness-ERMA) History of appendectomy History of arthroscopy of both knees History of carpal tunnel release History of hysterectomy History of tubal ligation Hx of removal of ovary Family & Social History Family History (Updated 09/22/20 @ 03:17 by ROSINA Ness-ERMA) Mother Heart attack COPD (chronic obstructive pulmonary disease) Hyperlipidemia Hypertension Father Alcoholism and drug addiction in family Brother Diabetes mellitus Murder of relative Brother No problems noted. Social History: household members spouse Prior Living Arrangements Mobile home Safety & Behavioral: Feels Safe in Current Yes Environment Been Physically Hurt or No Threatened By a Person Suicidal Ideation Description None Suicide Plan Description No Plan Tobacco & Substance use: Tobacco type cigarettes cutting back,cannabis/marijuana 1-2 smokes daily Smoking Status Current every day smoker alcohol intake never alcohol intake frequency other Substance Use Type marijuana Meds Home Medications and Allergies Home Medications Medication Instructions Recorded Confirmed Type alprazolam [Xanax] 1 mg PO TID PRN 09/19/20 09/21/20 History amlodipine 10 mg PO DAILY 09/19/20 09/21/20 History apixaban [Eliquis] 5 mg PO BID 09/19/20 09/21/20 History hydroxyzine HCl 75 mg PO TID PRN 09/19/20 09/21/20 History losartan 50 mg PO BID 09/19/20 09/21/20 History pantoprazole [Protonix] 40 mg PO DAILY 09/19/20 09/21/20 History senna-docusate sodium [Senna Plus 1 tab PO BEDTIME 09/19/20 09/21/20 History (senna-docusate)] trazodone 50 mg PO BEDTIME PRN 09/21/20 09/21/20 History Allergies Allergy/AdvReac Type Severity Reaction Status Date / Time cortisone Allergy Verified 09/21/20 19:45 Review of Systems Constitutional Constitutional: Reports excessive sweating, Reports fatigue, Reports frequent falls and Reports weakness Eyes Eyes: Reports system reviewed and no additional complaints, except as documented ENT Ears, Nose, Mouth, and Throat: Yes system reviewed and no additional complaints, except as documented, Yes dizziness and Yes disequilibrium Cardiovascular Cardiovascular: Reports diaphoresis, Reports rapid heart rate, Reports irregular heart rhythm, Reports lightheadedness and Reports palpitations Respiratory Respiratory: Reports system reviewed and no additional complaints, except as documented Gastrointestinal Gastrointestinal: Reports nausea and Reports vomiting Genitourinary Genitourinary: Reports system reviewed and no additional complaints, except as documented and Reports hot flashes Musculoskeletal Musculoskeletal: Reports system reviewed and no additional complaints, except as documented and Reports muscle weakness Integumentary/Breasts Skin/Breast: Reports system reviewed and no additional complaints, except as documented Neurologic Neurologic: Reports abnormal speech, Reports dizziness, Reports frequent falls, Reports disequilibrium and Reports weakness Psychiatric Psychiatric: Reports system reviewed and no additional complaints, except as documented and Reports anxiety Endocrine Endocrine: Reports excessive sweating, Reports fatigue and Reports palpitations Hematologic/Lymphatic Hematologic/Lymphatic: Reports system reviewed and no additional complaints, except as documented Allergic/Immunologic Allergic/Immunologic: Reports system reviewed and no additional complaints, except as documented Exam Vital Signs (past 8 hours): - 09/21/20 19:40 09/21/20 21:08 09/21/20 21:22 Temperature 98.7 F Pulse Rate 90 89 80 Respiratory Rate 16 Blood Pressure 104/67 135/75 Pulse Oximetry 98 100 100 09/21/20 21:30 09/21/20 21:32 09/21/20 22:26 Temperature 97.7 F Pulse Rate 78 94 H 75 Respiratory Rate 16 Blood Pressure 128/65 119/76 Pulse Oximetry 100 98 100 09/21/20 22:56 Temperature Pulse Rate 75 Respiratory Rate Blood Pressure 119/76 Pulse Oximetry Oxygen Delivery Method Room Air Narrative Exam Narrative: This is a pleasant 45-year-old female, well nourished, well groomed, appears slightly older than stated age, in mild distress. HEENT: Normocephalic, atraumatic, extraocular muscles intact, PERRLA, oropharynx is clear and mucous membranes are moist, neck is supple and symmetric, trachea is midline, no thyroid enlargement nontender, no masses palp ated, negative chvostek sign. Lungs: Decreased lung sounds throughout, but equal mild inspiratory wheezing noted on left upper lobe. Normal AP in diameter and contour without kyphoscoliosis, known nasal flaring, retractions, or non tachypneic. Cardiac: S1-S2 with regular rate and rhythm without murmur, rubs, or gallops, no carotid bruit. Abdomen: Soft, diffuse generalized upper epigastric abdominal pain greatest with palpation just below the sternum, negative for organomegaly, or masses, bow el sounds are hypoactive in all 4 quadrants, no guarding or rebound present, no CVA tenderness. Extremities: no cyanosis, clubbing or edema, full range of motion intact radial and pedal pulses are normal, patient is able to ambulate independently. Skin: warm dry and intact without rashes, ulcerations or petechiae. Neuro: Alert and orientated x3, appropriate affect, strength 5/5 in all extremities, sensation is touch, cranial nerves-no deficits noted. Psych: Patient demonstrates slight anxiety verbalizes and anxiety of 6/10, denies depression or suicidal ideation, mental status attitude, thought context and judgment are appropriate for age. Objective Labs Result Diagrams: 09/21/20 19:47 09/21/20 19:47 Labs: Laboratory Results - last 24 hr 09/21/20 09/21/20 09/21/20 19:47 19:47 19:47 WBC 16.7 H RBC 5.29 H Hgb 15.2 Hct 44.9 MCV 84.9 MCH 28.6 MCHC 33.7 RDW 15.2 H Plt Count 343 Neut % (Auto) 68.1 Lymph % (Auto) 22.3 L [place] % (Auto) 6.0 Eos % (Auto) 2.7 Baso % (Auto) 0.9 Neut # (Auto) 49840 H Lymph # (Auto) 3700 [place] # (Auto) 1000 H Eos # (Auto) 500 H Baso # (Auto) 200 H PT 14.1 H INR 1.2 APTT 40 H Sodium 134 L Potassium 3.9 Chloride 100 Carbon Dioxide 21 L BUN 18 H Creatinine 0.74 Estimated GFR > 60.0 BUN/Creatinine Ratio 24.3 H Glucose 84 Calcium 9.9 Total Bilirubin 0.6 AST 47 H ALT 12 Alkaline Phosphatase 107 Total Protein 9.5 H Albumin 4.8 Globulin 4.7 H Albumin/Globulin Ratio 1.0 Lipase 1901 H D Urine RBC Urine WBC Ur Squamous Epith Cells Urine Bacteria Ur Culture Indicated? COVID-19 PCR 09/21/20 09/21/20 21:00 21:12 WBC RBC Hgb Hct MCV MCH MCHC RDW Plt Count Neut % (Auto) Lymph % (Auto) [place] % (Auto) Eos % (Auto) Baso % (Auto) Neut # (Auto) Lymph # (Auto) [place] # (Auto) Eos # (Auto) Baso # (Auto) PT INR APTT Sodium Potassium Chloride Carbon Dioxide BUN Creatinine Estimated GFR BUN/Creatinine Ratio Glucose Calcium Total Bilirubin AST ALT Alkaline Phosphatase Total Protein Albumin Globulin Albumin/Globulin Ratio Lipase Urine RBC None seen Urine WBC None seen Ur Squamous Epith Cells 0-1 /hpf Urine Bacteria None seen Ur Culture Indicated? Cult not indicated COVID-19 PCR Negative Assessment & Plan Assessment & Plan narrative: Patient is being admitted for acute pancreatitis on chronic, leukocytosis and elevated lipase, worsening severe abdominal pain and unable to tolerate oral intake or tolerate her pain medication. A few given her history and her presentation today despite the improvement in her labs that she has failed outpatient attempted treating her pancreatitis. Patient requires inpatient medical management and decision making for hourly IV hydration, pain management as well as monitoring for possible complications of acute tubular necrosis, necrotizing pancreatitis, extra pancreatic infection and pseudo aneurysm. This is a new diagnosis for this patient, she also has comorbidity risk factors for ischemic stroke such as hypertension smoking, obesity, with a history of multiple clots 5 months ago. She is at much higher risk from a medical or surgical complication because of her obesity increases the difficulty of any medical management, increases the chances of poor outcome. 1. Acute pancreatitis, acute on chronic, present on admission -WBC 16.7, sodium 134, bicarb 21, BUN 18, lipase 1901, down from 4634 on 09/19/2020, total protein 9.5, AST 47. -monitor hematocrit goal 35-44, and BUN 7-17 x 24 hours to dictate hydration protocol. -hydration protocol: patient received a 1000 cc normal saline in the ER, then patient changed to lactated Ringer's (decrease risk of SIRS) start 340 cc/hour, Max LR 680 cc/hourwill titrate up LR by 1 cc/hour based on urinary output with a goal of 35 cc urinary output per hour. Urinary output monitored Q hour times 24 hours. Hydration x 48 hours. -a.m. labs CMP, A1c, lipid, Mag, lipase, PT/INR -patient on telemedicine, vital signs checked q.4 hours, O2 saturation goal 95%. If O2 sat drops below 90% order ABG. Currently O2 sat 100% on room air. -glucose 84, at goal - clear liquid diet ordered, diet to progress to low-fat low residue soft diet as patient can tolerate, if patient is unable to progress to food after 5 days consider TPN via NG tube. -UA dip in emergency room was negative will repeat urinalysis and micro in the morning to rule out UTI-will monitor for abdominal compartment syndrome (urinary bladder pressures) -monitor for neuromuscular irritability- negative chvostek sign, ordered trousseau sign evaluation -pain management fentanyl 25 mcg Q hour times 24 hours max 300 mcg, patient is not opiate naive. Patient had 4 mg of morphine and 4 mg of aldosterone in ER. -recommend on discharge patient to be referred to establish PCP and cardiology & neurology evaluation. Follow-up pancreatic protocol MRI with and without intravenous contrast is recommended after resolution of pancreatitis, to exclude underlying neoplasm. -PT and OT evaluations ordered. -patient to continue Protonix and pancreatic enzyme Creon. 2. Blood clots, chronic history of, not present on admission -patient evaluated for DVT and PE, and continued monitoring for clots. -patient to continue Eliquis 5 mg once daily and SCDs -encouraged smoking cessation 3. Hypertension, essential, chronic, at goal, present on admission -continue patient's amlodipine 10 mg and losartan 50 mg 4. Anxiety, acute exacerbation, acute on chronic, present on admission -patient to continue Ativan and trazodone and Vistaril. 5. Overweight (BMI 28 ), chronic, present on admission -patient education provided on weight loss, dietary changes, and exercise. Code status: Full code Decision maker: Spouse Guillermo Otero VTE prophylaxis: Contraindicated patient to continue Eliquis 5 mg and SCDs [id number]: None Quality VTE Deep Vein Thrombosis/Pulmonary Embolism Present on Admission: No
[2020-09-22 06:05] LABS: INR 1.4 (0.9-1.3); Prothrombin Time 16.5 SECONDS (10.1-12.7)
[2020-09-22 06:11] LABS: BUN Creatinine Ratio 18.9 (6-22); Blood Urea Nitrogen 10 mg/dL (7-17); Calcium 8.9 mg/dL (8.4-10.2); Carbon Dioxide 22 mmol/L (22-32); Chloride 106 mmol/L (98-107); Cholesterol 199 mg/dL (140-199); Estimated Glomerular Filt Rate > 60.0 mL/min (>60); Glucose 81 mg/dL (70-100); HDL Cholesterol 17 mg/dL (40-60); HEMOLYSIS < 15 (0-50); LDL Cholesterol Calculated 140 mg/dL (<100); Magnesium 1.6 mg/dL (1.6-2.3); Potassium 3.4 mmol/L (3.4-5.1); Sodium 138 mmol/L (137-145); Triglycerides 212 mg/dL (35-150)
[2020-09-22 06:12] LABS: Hemoglobin A1C% w Est Avg Glu 5.4 % (4.0-6.0)
[2020-09-22 06:35] LABS: Add Manual Diff / Slide Review NO; Basophils Absolute Auto 100 /uL (0-100); Basophils Percent Auto 0.9 % (0-2); Eosinophils Absolute Auto 400 /uL (0-450); Eosinophils Percent Auto 4.7 % (2-4); Hematocrit 38.8 % (36-46); Hemoglobin 13.2 g/dL (12.0-16.0); Lymphocytes Absolute Auto 2900 /uL (1100-4500); Lymphocytes Percent Auto 31.8 % (25-40); Mean Corpuscular HGB Conc 34.1 % (30-36); Mean Corpuscular Hemoglobin 28.8 PG (26-34); Mean Corpuscular Volume 84.4 fL (80-100); Monocytes Absolute Auto 900 /uL (0-900); Monocytes Percent Auto 9.5 % (3-14); Neutrophils Absolute Auto 4900 /uL (1500-7000); Neutrophils Percent Auto 53.1 % (50-75); Platelet Count 228 X10^3/uL (150-400); Red Cell Distribution Width 15.3 % (11.6-14.8); White Blood Cell Count 9.1 X10^3/uL (4.5-11.0)
[2020-09-22] MEDS: HYDROMORPHONE 4 MG TABLET PO ×2 (07:53→12:00)
[2020-09-22] MEDS: DOCUSATE 100 MG CAPSULE PO (08:07)
[2020-09-22] MEDS: APIXABAN 5 MG TABLET PO (08:07)
[2020-09-22] MEDS: LOSARTAN 50 MG TABLET PO (08:07)
[2020-09-22] MEDS: PANTOPRAZOLE 40 MG TABLET PO (08:07)
[2020-09-22] MEDS: AMLODIPINE 5 MG TABLET 10 MG PO (08:08)
[2020-09-22 08:29] LABS: Alanine Aminotransferase 6 IU/L (<35); Albumin 3.6 g/dL (3.5-5.0); Albumin Globulin Ratio 1.1 (1.0-2.8); Alkaline Phosphatase 74 U/L (38-126); Aspartate Aminotransferase 41 IU/L (14-36); Bilirubin Total 0.4 mg/dL (0.2-1.3); Bilirubin Unconjugated 0.3 mg/dL (0.0-1.1); Globulin 3.2 g/dL (1.7-4.1); HEMOLYSIS < 15 (0-50); Total Protein 6.8 g/dL (6.3-8.2)
[2020-09-22] MEDS: LACTATED RINGERS 1,000 ML 125 ML IV (08:58)
--- NOTE | 2020-09-22 10:20 | CM.DANOTE ---
Addendum entered by Joyce Marques LPN 09/22/20 14:23: Dr. Wesley has now ok'd pt for d/c to home. Earlier today pt had indicated she was hopeful that she would be ok to go. Home this afternoon. Addendum entered by Joyce Marques LPN 09/22/20 11:04: Met with pt as planned. She confirms she and her live in a motor home in an [facility]. She moved here in July from [place] and is in process of finding a PCP. She says she had refills of her medication from [place] PCP but knows she needs to establish care here and has contact numbers for this. Pt clarifies that she does at times use a FWW at home, primarily if I feel weak and I get better balance getting into the motor home, 5 steps, when I use the walker. Pt says her Guillermo will be picking her up at d/c. P: at this point, home when stable for same. Addendum entered by Joyce Marques LPN 09/22/20 10:52: Geni reports she has completed the eval and that pt did very well. Was mobile in [place] and did stairs without need for any assistive device. Addendum entered by Joyce Marques LPN 09/22/20 10:34: Met briefly with pt and introduced self and role. She was just in process of working with PT Geni but did confirm she is without a PCP. Will plan to see her later today to continue conversation. Original Note: Discharge Planning/Care Management DCP: assessment: Case received, EMR reviewed. Discussed in Team Rounds. Pt is a 45 year old female who admitted last night to care of hospitalist team. Dr. Wesley will be following pt today. Payer: [facility] out of [facility]. PCP: unclear. will discuss with pt. Hospitalist JOSIAH Eng's H&P states pt is admitted for acute flare of chronic pancreatitis. Will check in now to continue the assessment process and discussion of d/c issues and options. CM Discharge Assessment Start: 09/22/20 10:18 Freq: Status: Active Protocol: Document 09/22/20 10:19 ITV (Rec: 09/22/20 10:20 ITV [id number]) Discharge Planning Assessment Advance Directives? No History Provided By Medical Record Prior Living Arrangements Mobile home Household Members spouse Is patient alert and oriented? Yes DME Already Rented / Owned FWW / Walker Review Status In Process
--- NOTE | 2020-09-22 10:28 | PT.IIE ---
Current Diagnoses Acute pancreatitis without necrosis or infection, unspecified (09/21/20) Surgical History (Last Updated 09/22/20 @ 03:14 by ROSINA Ness-ERMA) History of appendectomy History of arthroscopy of both knees History of carpal tunnel release History of hysterectomy History of tubal ligation Hx of removal of ovary Medical History (Last Updated 09/22/20 @ 03:14 by ROSINA Ness-ERMA) Anxiety Benign essential HTN Chronic pancreatitis Pancreatic pseudocyst Physical Therapy Inpatient Evaluation/Re-Eval M1 PT/OT-IP Prior Functional Status Start: 09/22/20 10:52 Freq: NEEDED Status: Active Protocol: Document 09/22/20 10:28 AB (Rec: 09/22/20 11:06 AB [email or web address]) Medical Review Prior Functional Status Medical History Reviewed Yes Communication able to make needs known Mobility and Gait pt stated that she is independent with all mobilities and ambulation without AD Social History Household Members spouse Living Arrangements Mobile home Number of Floors (Floors) One Floor Number of Stairs To Enter/Railing? 5 steps L rail ascending Home Environment Standard Height Toilet,Walk in Shower,Built-In Shower Seat Home Equipment Hand Held Shower Employment Status Unemployed M2 PT-IP Current Condition Start: 09/22/20 10:52 Freq: NEEDED Status: Active Protocol: Document 09/22/20 10:28 AB (Rec: 09/22/20 11:06 AB [email or web address]) Physical Therapy Current Condition Current Condition Evaluation Date 09/22/20 Treatment Diagnosis pancreatitis; difficulty in walking Onset Date 09/21/20 M3 PT-IP Subjective Start: 09/22/20 10:52 Freq: NEEDED Status: Active Protocol: Document 09/22/20 10:28 AB (Rec: 09/22/20 11:06 AB [email or web address]) Subjective Physical Therapy Visit Type Type Initial Evaluation Visit Start Time 10:28 Visit Stop Time 10:48 Total Visit Minutes 20 Number of COTTAGE SUPERVISOR Visits 0 Physical Therapy Visit Comments Patient Comments pt is agreeable to do PT Therapy Pain Assessment Pain Present Pain Present Denied Pain M4 PT-IP Mobility and Gait Start: 09/22/20 10:52 Freq: NEEDED Status: Active Protocol: Document 09/22/20 10:28 AB (Rec: 09/22/20 11:06 AB [email or web address]) PT-Bed Mobility Assessment Supine to Sit Supine to Sit Independent Sit to Supine Sit to Supine Independent PT-Transfer Assessment Sit to and From Stand Sit to and from Stand Independent Equipment Transfer Assistive Device None Comments Mobility Comments completed supine to sit independent, sit to stand independent and ambulated in hallway without AD SBA for safety as pt stated that she feels a little oozy due to the medications. pt with unsteady gait but without LOB. completed up/down steps using L rail ascending SBA. ambulated back to her room. Tinetti balance assessment completed and pt is at low fall risk. requested to go back to bed and completed sit to supine independent. informed pt that not PT intervention indicated at this time and agreed. informed nurse and family independence case manager. left pt in bed with call light and table within reach. alarm on. Gait Assessment Gait Gait Assistance Required: Standby Assistance Distance (Feet) 75 Able to Maintain Weight Bearing Status Yes During Gait Assistive Devices Assistive Device None Orthotic/Prosthetic Devices or Brace: No Gait Deviations General Gait Pattern Narrow Based Gait Comments Gait Comments pls refer to mobility section for details Stair Climbing Assessment Evaluation Level of Assist On Stairs Standby Assistance Devices Stair Climbing Assistive Devices Left Railing Technique/Endurance Stair Climbing Direction Ascend and Descend Stair Climbing Technique Step Over Step Number of Steps Climbed 3 Query Text: Stair Climbing Set # Repetitions (reps) 1 PT-Balance Assessment Sitting Balance and Reactions Static Sitting Balance Ability Normal Dynamic Sitting Balance Ability Normal Standing Balance and Reactions Static Standing Balance Ability Good Dynamic Standing Balance Ability Good Device Used without AD Functional Assessments Functional Tests Tinetti Balance and Gait Assessment balance score 15/16 gait score 11/12 total score 26/28 Other Functional Tests Performed tintetti balance assessment: low fall risk M5 PT-IP Objective Assessments Start: 09/22/20 10:52 Freq: NEEDED Status: Active Protocol: Document 09/22/20 10:28 AB (Rec: 09/22/20 11:06 AB [id number]) Orientation Orientation/Cognition Level of Alertness Alert Orientation Name,Place,Situation Language Function Ability No Deficits Noted Safety Awareness Decreased Safety Awareness Memory Description No Deficits Noted Gross Range of Motion Lower Extremity ROM Assessment Within Functional Limits Strength Lower Extremity Strength Assessment Within Functional Limits Sensation Assessment Sensation Gross Sensation WNL Muscle Tone Muscle Tone WNL Yes M6 PT-IP Treatment Start: 09/22/20 10:52 Freq: NEEDED Status: Active Protocol: Document 09/22/20 10:28 AB (Rec: 09/22/20 11:06 AB [id number]) Physical Therapy Treatment Education Education Provided Safety M7 PT-IP Assessment and Plan Start: 09/22/20 10:52 Freq: NEEDED Status: Active Protocol: Document 09/22/20 10:28 AB (Rec: 09/22/20 11:06 AB [id number]) PT Summary Assessment and Plan Potential Status of Condition at Evaluation Stable Summary Assessment Summary Pt eval completed and no further PT intervention indicated at this time. pt educated on importance of mobility and agreed to ambulate with nurses. nurses aware. SBA at this time for safety as pt can be impulsive. tinetti balance assessment conducted and pt is at low fall risk. pt plans to go home and spouse to assist her. Frequency of Treatment Frequency Of Treatment Discharge Recommendations To Nursing Amount of Assist Needed Standby Assistance Discharge Recommendations PT Discharge Recommendations Home Transportation Needs at Discharge Private Vehicle
--- NOTE | 2020-09-22 13:22 | OT.IPNOTE ---
Approached pt for OT eval, pt states has no OT needs and that her will assist her as needed. Therefore discharge OT orders.
--- NOTE | 2020-09-22 13:44 | P.DS_ITS ---
History of Present Illness History of Present Illness Date Patient Seen: 09/22/20 Time Patient Seen: 13:45 Chief complaint: abdominal pain, vomitting Narrative: As per ROSINA Ness: Patient is a 45-year-old female Brigid Otero who presented to the emergency department for an acute flare of her chronic pancreatitis severe abd pain, nausea, vomiting that had failed out patient management and has been unable to keep foods & fluids down x 3 days. Patient was seen and treated in the emergency room for this exacerbation on 09/19/2020. At that time her CT scan showing pseudocysts and inflammation consistent with pancreatitis, elevated lipase, and leukocytosis. Because she was able to tolerate oral intake she felt she could be discharged home with symptom treatment. She returned today to the emergency room due to worsening condition, abdominal pain and inability to keep food or fluid down. 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 in May in [place] demonstrated pseudocysts on her pancreas, and she was recommended to repeat her CT in November of 2020 for monitoring. Patient is taking [address] [place] 4 Capsules a pancreatic enzyme, amlodipine, losartan, Protonix, and for anxiety Ativan, trazodone, and Vistaril. Patient is admitted for exacerbation of chronic pancreatitis. Patient states she has been unable to keep down food or fluids x3 days, with severe and worsening abdominal pain epigastric that radiates around to her left and right side to her back and in between her shoulder blades. She complains of Nausea and vomiting x5 days, she states that putting pressure on her pancreas by l eaning forward and heating pad had been helping but treatment failure began about 3 days ago, she denies fever body aches chills but does note positive cold sweats with hot flashes due to 2010 hysterectomy. She denies any recent blood in urine or stool, coffee-ground vomitus or black tarry stool but noted some brownish blood in vomit once within the past week. She notes that she has been having bouts of dizziness when going from sitting to standing and often after walking for long periods of time, she also has suffered since July with on and off tachycardia documented in the 160s and has felt irregular heart rate she notes that for the past 6 months she has began to fall more often when getting out of her camper to which she has now using a walker if her is not present to hold her hand. Patient expresses believes that she has increased weakness on the left side. She also notes that she has had to short events of 1-2 minutes of right-sided facial numbness and tingling and difficulty with speech twice in the past 2 months. Patient was extremely hypertensive prior to April of 2020 and now suffers from chronically hypotension due to blood pressure medication. Patient states last cardiac workup was in 2006 and was unremarkable, and does not have a outside cutter or neurologist. Patient did go to [facility] in July after moving from floor to meet with a physician to try to establish care but did not follow-up because she felt it was too far away for her to travel. At this time patient does not have any PCP or guest relations coordinator. Patient denies cough shortness of breath or chest pain, patient denies any abnormal swelling of hands or feet, any abnormal bruising bl eeding or wound healing. Patient had WBC 16.7, RBC 5.29, BUN 18, lipase 1901 down from 4634 on 09/19/2020, bicarb 21, total protein 9.5. Discharge Providers Provider Date of admission: 09/21/20 21:32 Discharge Date: 09/22/20 Consults: 09/21/20 22:33 Consult to Discharge Planning Routine Comment: Consult to Occupational Therapy Evaluate & Treat Comment: Physician Instructions: Evaluate and treat Consult to Physical Therapy Evaluate & Treat Comment: Physician Instructions: Evaluate and Treat Discharge provider: Luis Wesley DO Summary Hospital Course Discharge Diagnosis: 1. Acute on chronic pancreatitis, present on admission, improved 2. History of VTE on anticoagulation 3. Hypertension, essential, chronic, at goal, present on admission 4. Anxiety, acute on chronic, present on admission 5. Overweight (BMI 28 ), chronic, present on admission Hospital Course: Caitlyn Boyd is a 45-year-old female with past medical history of chronic pancreatitis who was admitted for acute on chronic pancreatitis. The morning following admission, the patient was feeling much improved with bowel rest and IV fluids. She was started on oral Dilaudid which greatly helped with her pain and she was able to tolerate some salmon at lunch. She was tolerating liquids and had no nausea or vomiting. Her pain was controlled with oral medication and she was discharged home. She has just moved from [place] and requested continuance of her chronic medications, specifically her Xanax, hydroxyzine, and trazodone. Checked [facility] website, only 1 prescription for percocet recently from the ER. No other prescriptions had been provided. Unable to check [place] records. These were refilled for a period of 7 days, to allow her time to establish care with a primary care provider. She was also provided with a prescription for some Dilaudid for her chronic pancreatitis. Exam Vital Signs (past 8 hours): - 09/22/20 06:21 09/22/20 07:30 09/22/20 08:07 Temperature 97.3 F L 96.9 F L Pulse Rate 70 92 H 70 Respiratory Rate 16 16 Blood Pressure 125/75 104/59 L 125/75 Pulse Oximetry 100 100 09/22/20 08:46 09/22/20 11:48 09/22/20 12:26 Temperature 97.2 F L Pulse Rate 68 Respiratory Rate 16 Blood Pressure 135/62 Pulse Oximetry 100 96 96 Oxygen Delivery Method Room Air Oxygen Flow Rate 0 Narrative Exam Narrative: GENERAL APPEARANCE: Well developed, well nourished, in no acute distress. SKIN: Inspection of the skin reveals no rashes, ulcerations or petechiae. HEENT: Normocephalic atraumatic, extraocular muscles are intact, oropharynx is clear and mucous membranes are moist, neck is supple without adenopathy NECK: Supple and symmetric. There was no thyroid enlargement, and no tenderness, or masses were felt. CHEST: Normal AP diameter and normal contour without any kyphoscoliosis. LUNGS: Auscultation of the lungs revealed no wheezes, rhonchi, or rales. CARDIOVASCULAR: There was a regular rate and rhythm without any murmurs, gallops, rubs. Peripheral pulses were 2+ and symmetric. ABDOMEN: Soft and nontender with normal bowel sounds. No ascites was noted. MUSCULOSKELETAL: There was no tenderness or effusions noted. Muscle strength and tone were normal. EXTREMITIES: No cyanosis, clubbing or edema. NEUROLOGIC: Alert and oriented x 3. Normal affect. Gait was normal. Strength is +5/5 in the Upper Extremities and Lower Extremities Bilaterally. Sensation to touch was normal. Objective Labs Result Diagrams: 09/22/20 05:45 09/22/20 05:45 Labs: Laboratory Results - last 24 hr 12/16/20 12/16/20 12/16/20 19:47 19:47 19:47 WBC 16.7 H RBC 5.29 H Hgb 15.2 Hct 44.9 MCV 84.9 MCH 28.6 MCHC 33.7 RDW 15.2 H Plt Count 343 Neut % (Auto) 68.1 Lymph % (Auto) 22.3 L [place] % (Auto) 6.0 Eos % (Auto) 2.7 Baso % (Auto) 0.9 Neut # (Auto) 09728 H Lymph # (Auto) 3700 [place] # (Auto) 1000 H Eos # (Auto) 500 H Baso # (Auto) 200 H PT 14.1 H INR 1.2 APTT 40 H Sodium 134 L Potassium 3.9 Chloride 100 Carbon Dioxide 21 L BUN 18 H Creatinine 0.74 Estimated GFR > 60.0 BUN/Creatinine Ratio 24.3 H Glucose 84 Hemoglobin A1c Calcium 9.9 Magnesium Total Bilirubin 0.6 Conjugated Bilirubin Unconjugated Bilirubin AST 47 H ALT 12 Alkaline Phosphatase 107 Total Protein 9.5 H Albumin 4.8 Globulin 4.7 H Albumin/Globulin Ratio 1.0 Triglycerides Cholesterol LDL Cholesterol, Calc HDL Cholesterol Lipase 1901 H D Urine RBC Urine WBC Ur Squamous Epith Cells Urine Bacteria Ur Culture Indicated? COVID-19 PCR 09/21/20 09/21/20 09/22/20 21:00 21:12 05:45 WBC RBC Hgb Hct MCV MCH MCHC RDW Plt Count Neut % (Auto) Lymph % (Auto) [place] % (Auto) Eos % (Auto) Baso % (Auto) Neut # (Auto) Lymph # (Auto) [place] # (Auto) Eos # (Auto) Baso # (Auto) PT 16.5 H INR 1.4 H APTT Sodium Potassium Chloride Carbon Dioxide BUN Creatinine Estimated GFR BUN/Creatinine Ratio Glucose Hemoglobin A1c Calcium Magnesium Total Bilirubin Conjugated Bilirubin Unconjugated Bilirubin AST ALT Alkaline Phosphatase Total Protein Albumin Globulin Albumin/Globulin Ratio Triglycerides Cholesterol LDL Cholesterol, Calc HDL Cholesterol Lipase Urine RBC None seen Urine WBC None seen Ur Squamous Epith Cells 0-1 /hpf Urine Bacteria None seen Ur Culture Indicated? Cult not indicated COVID-19 PCR Negative 09/22/20 09/22/20 09/22/20 05:45 05:45 05:45 WBC 9.1 RBC 4.60 Hgb 13.2 Hct 38.8 MCV 84.4 MCH 28.8 MCHC 34.1 RDW 15.3 H Plt Count 228 Neut % (Auto) 53.1 Lymph % (Auto) 31.8 [place] % (Auto) 9.5 Eos % (Auto) 4.7 H Baso % (Auto) 0.9 Neut # (Auto) 4900 Lymph # (Auto) 2900 [place] # (Auto) 900 Eos # (Auto) 400 Baso # (Auto) 100 PT INR APTT Sodium 138 Potassium 3.4 Chloride 106 Carbon Dioxide 22 BUN 10 Creatinine 0.53 Estimated GFR > 60.0 BUN/Creatinine Ratio 18.9 Glucose 81 Hemoglobin A1c 5.4 Calcium 8.9 Magnesium 1.6 Total Bilirubin Conjugated Bilirubin Unconjugated Bilirubin AST ALT Alkaline Phosphatase Total Protein Albumin Globulin Albumin/Globulin Ratio Triglycerides 212 H Cholesterol 199 LDL Cholesterol, Calc 140 H HDL Cholesterol 17 L Lipase Urine RBC Urine WBC Ur Squamous Epith Cells Urine Bacteria Ur Culture Indicated? COVID-19 PCR 09/22/20 06:50 WBC RBC Hgb Hct MCV MCH MCHC RDW Plt Count Neut % (Auto) Lymph % (Auto) [place] % (Auto) Eos % (Auto) Baso % (Auto) Neut # (Auto) Lymph # (Auto) [place] # (Auto) Eos # (Auto) Baso # (Auto) PT INR APTT Sodium Cancelled Potassium Cancelled Chloride Cancelled Carbon Dioxide Cancelled BUN Cancelled Creatinine Cancelled Estimated GFR Cancelled BUN/Creatinine Ratio Cancelled Glucose Cancelled Hemoglobin A1c Calcium Cancelled Magnesium Total Bilirubin 0.4 Conjugated Bilirubin 0.0 Unconjugated Bilirubin 0.3 AST 41 H ALT 6 Alkaline Phosphatase 74 Total Protein 6.8 Albumin 3.6 Globulin 3.2 Albumin/Globulin Ratio 1.1 Triglycerides Cholesterol LDL Cholesterol, Calc HDL Cholesterol Lipase Urine RBC Urine WBC Ur Squamous Epith Cells Urine Bacteria Ur Culture Indicated? COVID-19 PCR PFSH Medical History (Updated 09/22/20 @ 03:14 by MAURIZIO Ness) Anxiety Benign essential HTN Chronic pancreatitis Pancreatic pseudocyst Surgical History (Updated 09/22/20 @ 03:14 by MAURIZIO Ness) History of appendectomy History of arthroscopy of both knees History of carpal tunnel release History of hysterectomy History of tubal ligation Hx of removal of ovary Family History (Updated 09/22/20 @ 03:18 by MAURIZIO Ness) Mother Heart attack COPD (chronic obstructive pulmonary disease) Hyperlipidemia Hypertension Father Alcoholism and drug addiction in family Brother Diabetes mellitus Murder of relative Brother No problems noted. Social History household members: spouse Smoking Status: Current every day smoker alcohol intake: never Discharge Plan Discharge Plan Patient Disposition: Home Provider Discharge Comment: You were admitted to the hospital with pancreatitis, improved with pain medications. You were tolerating a diet on discharge. Please establish a PCP in [facility] to set up a chronic pain management plan for chronic pancreatitis. Discharge orders & Medications Prescriptions: New hydromorphone 2 mg Tablet 2 - 4 mg PO Q6HR 7 Days Qty: 20 RF: 0 ondansetron 4 mg Tablet,Disintegrating 4 mg PO Q8HR PRN (Reason: Nausea And Vomiting) 14 Days Qty: 30 RF: 0 Continued losartan 50 mg Tablet 50 mg PO BID RF: 0 amlodipine 10 mg Tablet 10 mg PO DAILY RF: 0 pantoprazole [Protonix] 40 mg Tablet,Delayed Release (Dr/Ec) 40 mg PO DAILY RF: 0 senna-docusate sodium Tablet 1 tab PO BEDTIME RF: 0 Eliquis 5 mg Tablet 5 mg PO BID RF: 0 alprazolam [Xanax] 0.5 mg Tablet 1 mg PO TID PRN (Reason: Anxiety) 7 Days Qty: 15 RF: 0 hydroxyzine HCl 25 mg Tablet 75 mg PO TID PRN (Reason: Anxiety) 7 Days Qty: 24 RF: 0 trazodone 50 mg Tablet 50 mg PO BEDTIME PRN (Reason: Insomnia) 14 Days Qty: 14 RF: 0 Diet/Activity/Treatments Diet: Diet as Tolerated and Low-fat Diet comment: Low fat diet for chronic pancreatitis Activity: As tolerated Visit Report/Discharge Packet Instructions: Acute Pancreatitis, Chronic Pancreatitis, Fat-Restricted Diet, DI for Pancreatitis, Hydromorphone Discharge Data Attending Provider: Evelyn Eng VTE Deep Vein Thrombosis/Pulmonary Embolism Present on Admission: No
--- NOTE | 2020-09-22 15:00 | PC.NURSE ---
Pt is dressed and ready for discharge home with Spouse. Went over d/c instructions -discussed d/c meds, meds sent to Pharmacy. Reviewed stroke education, recommended low fat diet and gave information about diet. Reminded Pt that she cannot drive while she is taking pain meds, and she is to follow up and establish with a new PCP as soon as possible. Pt denies further questions and was taken out to [facility] via w/c by RN with all belongings to ride home with Spouse.
== END 2020-09-22 15:04 | disposition home or self-care (01) ==
LOC: ED 21:32 → AC 09-22 13:08
PROVIDERS: Admitting Provider Nurse Practitioner Family; Emergency Provider Emergency Medicine; Referring Provider Emergency Medicine; Visit Provider Nurse Practitioner Family
DX: K85.90 Acute pancreatitis without necrosis or infection, unspecified (principal); R10.9 Unspecified abdominal pain; Z79.01 Long term (current) use of anticoagulants; D72.829 Elevated white blood cell count, unspecified; F17.210 Nicotine dependence, cigarettes, uncomplicated; I10 Essential (primary) hypertension; F41.9 Anxiety disorder, unspecified; E66.3 Overweight; Z68.28 Body mass index [BMI] 28.0-28.9, adult; Z01.812 Encounter for preprocedural laboratory examination; Z20.828 Contact with and (suspected) exposure to other viral communicable diseases
CPT/HCPCS: 36415; 74177; 80048; 80053; 80061; 80076; 80320; 81003; 81015; 81025; 83036; 83605; 83690; 83735; 85025; 85610; 85730; 87635; 93005; 93010; 96361; 96374; 96375; 96376; 97161; 99282; 99284; G0378; J2270; J2405; J3010

== ENCOUNTER 2020-10-10 10:22 | Inpatient (IN) | payer BC, SELFPAY ==
[2020-09-21 21:52] VITALS: BMI 28.0
[2020-10-10] VITALS (17 sets, daily range): BP systolic 139–179; BP diastolic 79–95; PULSE 73–105; RESP 18–20; TEMP 35.7–36.1; O2SAT 94–99; BMI 23.9
[2020-10-10] MEDS: HYDROMORPHONE 0.5 MG INJ IV ×3 (11:05→17:09)
[2020-10-10] MEDS: ONDANSETRON 4 MG/2 ML INJ IV (11:05)
[2020-10-10] MEDS: SODIUM CHLORIDE 0.9% 1,000 ML 1000 ML IV (11:05)
--- NOTE | 2020-10-10 11:11 | ED.ABDPAIN ---
HPI - Abdominal Pain <JOSIAH Stevens - Last Filed: 10/10/20 16:28> General Chief Complaint: Abdominal Pain Stated Complaint: throwing up, upper abdomen pain, upper back pain Time Seen by Provider: 10/10/20 10:29 Source: patient Mode of arrival: Ambulatory Limitations: no limitations History of Present Illness HPI narrative: 45yo female with a history of chronic pancreatitis, present to the ED for abdominal pain for the past 24 hours with vomiting that started this morning. She states she has been able to keep water down but states the pain is increasing. She was seen in September and /admitted to the hospital on 09/21/2020 for fluids and pain control, patient was discharged on 09/22/2020. She states that she has recently ran out of her pain medications and has been having difficulty establish a primary care provider. Patient states pain is epigastric, worse with palpation and leaning backwards. She denies any fevers, chills, diarrhea, chest pain, shortness of breath, or any other concerns. Patient denies any alcohol use, unknown origin of chronic pancreatitis. Related Data Home Medications Medication Instructions Recorded Confirmed Eliquis 5 mg PO BID 09/19/20 10/10/20 amlodipine 10 mg PO DAILY 09/19/20 10/10/20 losartan 50 mg PO BID 09/19/20 10/10/20 pantoprazole [Protonix] 40 mg PO DAILY 09/19/20 10/10/20 senna-docusate sodium 1 tab PO BEDTIME 09/19/20 10/10/20 hydromorphone 4 mg PO Q4-6H PRN 10/10/20 10/10/20 Previous Rx's Medication Instructions Recorded alprazolam [Xanax] 1 mg PO TID PRN 7 Days #15 tab 09/22/20 hydroxyzine HCl 75 mg PO TID PRN 7 Days #24 tab 09/22/20 trazodone 50 mg PO BEDTIME PRN 14 Days #14 09/22/20 tab Allergies Allergy/AdvReac Type Severity Reaction Status Date / Time cortisone Allergy Verified 09/21/20 19:45 Review of Systems <JOSIAH Stevens - Last Filed: 10/10/20 16:28> Review of Systems Narrative: REVIEW OF SYSTEMS: GENERAL: Denies fever. HENT: No head trauma. CARDIOVASCULAR: No chest pain. RESPIRATORY: No cough. GASTROINTESTINAL: Complains of abdominal pain, see HPI. MUSCULOSKELETAL: No pain. INTEGUMENTARY: No rash, lesions, or pruritus. NEURO: No numbness or tingling. PSYCH: No behavior or mood changes. Patient History <JOSIAH Stevens - Last Filed: 10/10/20 16:28> Medical History Anxiety Benign essential HTN Chronic pancreatitis Pancreatic pseudocyst Surgical History History of appendectomy History of arthroscopy of both knees History of carpal tunnel release History of hysterectomy History of tubal ligation Hx of removal of ovary Family History Mother Heart attack COPD (chronic obstructive pulmonary disease) Hyperlipidemia Hypertension Father Alcoholism and drug addiction in family Brother Diabetes mellitus Murder of relative Brother No problems noted. Social History household members: spouse Smoking Status: Current every day smoker alcohol intake: never Smoking Status: Current every day smoker alcohol intake frequency: other Substance Use Type: marijuana Exam <JOSIAH Stevens - Last Filed: 10/10/20 16:28> Initial Vital Signs Initial Vital Signs: Vital Signs Temperature 96.3 F L 10/10/20 10:51 Pulse Rate 105 H 10/10/20 10:51 Respiratory Rate 20 10/10/20 10:51 Blood Pressure 179/79 H 10/10/20 10:51 Pulse Oximetry 94 10/10/20 10:51 HYSICAL EXAMINATION: GENERAL: Awake and alert, appears to be in pain upon initial examination. HENT: Normocephalic, atraumatic. Hearing intact. Oral mucosa is pink and moist. EYES: Conjunctiva pink, sclera white, no periorbital swelling. CARDIOVASCULAR: S1 and S2 sounds normal. Regular rate and rhythm, no murmurs, clicks, or bruits. No pedal edema. RESPIRATORY: Normal respiratory rate, trachea midline, airway patent. No stridor, nasal flaring or accessory muscle use. Lungs are clear in all [place] without wheeze, rhonchi, or crackles. GASTROINTESTINAL: Bowel sounds normoactive. Abdomen is soft, mainly epigastric tenderness with some left upper quadrant tenderness with palpation. No organomegaly, no palpable masses. GENITALURINARY: No flank tenderness. MUSCULOSKELETAL: Normal gait and coordination. Equal tone and mass bilaterally. EXTREMITIES: CMS intact, no pedal edema. SKIN: Warm, dry, soft, appropriate color for ethnicity. No lesions, rashes, or wounds to visualized areas. NEURO: Alert and Oriented X 3. Good coordination. No ataxia, or sensory deficits, or cognitive issues. PSYCH: Appropriate affect and mood. <Katerine Angel DO - Last Filed: 10/10/20 19:01> Initial Vital Signs Initial Vital Signs: Vital Signs Temperature 96.3 F L 10/10/20 10:51 Pulse Rate 105 H 10/10/20 10:51 Respiratory Rate 20 10/10/20 10:51 Blood Pressure 179/79 H 10/10/20 10:51 Pulse Oximetry 94 10/10/20 10:51 Course <JOSIAH Stevens - Last Filed: 10/10/20 16:28> Course Course Narrative: 1356: I spoke with Dr. Franco regarding patient laboratory work and imaging, she recommended MRCP to determine admission here versus transfer. Orders Ordered: ED Orders 10/10/20 10:40 Complete Blood Count AUTO DIFF Stat Comprehensive Metabolic Panel Stat Ethanol (ETOH) Stat Lipase Stat 10/10/20 11:51 US abdomen limited Stat 10/10/20 11:56 COVID19 Stat 10/10/20 13:55 MR abdomen wo/w con Stat Hydromorphone HCl (Hydromorphone 1 Mg Inj) 1 mg IV Q3H PRN PRN Reason: Pain, Moderate (4-6) Last Admin: 10/10/20 18:32 Dose: 1 mg Documented by: DEMIAN Discontinued Medications Hydromorphone HCl (Hydromorphone 0.5 Mg Inj) 0.5 mg IV NOW ONE Stop: 10/10/20 10:56 Last Admin: 10/10/20 11:05 Dose: 0.5 mg Documented by: HILARY Hydromorphone HCl (Hydromorphone 0.5 Mg Inj) 0.5 mg IV NOW ONE Stop: 10/10/20 11:51 Last Admin: 10/10/20 11:59 Dose: 0.5 mg Documented by: HILARY Hydromorphone HCl (Hydromorphone 1 Mg Inj) 1 mg IV NOW ONE Stop: 10/10/20 13:07 Last Admin: 10/10/20 13:18 Dose: 1 mg Documented by: GLENN Hydromorphone HCl (Hydromorphone 0.5 Mg Inj) 0.5 mg IV Q1HR GHISLAINE Stop: 10/11/20 06:00 Last Admin: 10/10/20 16:52 Dose: Not Given Documented by: ZAID Hydromorphone HCl (Hydromorphone 0.5 Mg Inj) 0.5 mg IV NOW ONE Stop: 10/10/20 16:53 Last Admin: 10/10/20 17:09 Dose: 0.5 mg Documented by: GLENN Sodium Chloride (Normal Saline 0.9%) 1,000 mls @ 1,000 mls/hr IV BOLUS ONE Stop: 10/10/20 11:54 Last Infusion: 10/10/20 14:35 Dose: 0 mls/hr Documented by: Admin: 10/10/20 11:05 Dose: 1,000 mls/hr Documented by: HILARY Ketorolac Tromethamine (Ketorolac 60 Mg/2 Ml Vial) 30 mg IV NOW ONE Stop: 10/10/20 14:39 Last Admin: 10/10/20 14:43 Dose: 30 mg Documented by: GLENN Lorazepam (Lorazepam 2 Mg/Ml Inj) 1 mg IV NOW ONE Stop: 10/10/20 14:39 Last Admin: 10/10/20 14:57 Dose: 1 mg Documented by: GLENN Metoclopramide HCl (Metoclopramide 10 Mg/2 Ml Inj) 10 mg IV NOW ONE Stop: 10/10/20 13:27 Last Admin: 10/10/20 13:29 Dose: 10 mg Documented by: GLENN Ondansetron HCl (Ondansetron 4 Mg/2 Ml Inj) 4 mg IV NOW ONE Stop: 10/10/20 10:56 Last Admin: 10/10/20 11:05 Dose: 4 mg Documented by: HILARY Consultations Consultation #1: Patient staffed with Dr. Angel discussed test, test results, plan of care. Vital Signs Vital signs: Vital Signs - 8 hr 10/10/20 11:03 10/10/20 11:30 10/10/20 11:39 Pulse Rate 86 79 74 Blood Pressure 178/81 H Pulse Oximetry 95 97 99 10/10/20 12:00 10/10/20 12:30 10/10/20 13:00 Pulse Rate 78 99 H Blood Pressure Pulse Oximetry 98 98 97 10/10/20 13:30 10/10/20 14:00 10/10/20 14:30 Pulse Rate 80 74 73 Blood Pressure Pulse Oximetry 97 99 97 10/10/20 16:01 10/10/20 16:02 10/10/20 16:30 Pulse Rate 91 H 84 81 Blood Pressure 139/95 H Pulse Oximetry 98 99 97 <Katerine Angel DO - Last Filed: 10/10/20 19:01> Orders Ordered: ED Orders 10/10/20 10:40 Complete Blood Count AUTO DIFF Stat Comprehensive Metabolic Panel Stat Ethanol (ETOH) Stat Lipase Stat 10/10/20 11:51 US abdomen limited Stat 10/10/20 11:56 COVID19 Stat 10/10/20 13:55 MR abdomen wo/w con Stat Hydromorphone HCl (Hydromorphone 1 Mg Inj) 1 mg IV Q3H PRN PRN Reason: Pain, Moderate (4-6) Last Admin: 10/10/20 18:32 Dose: 1 mg Documented by: DEMIAN Discontinued Medications Hydromorphone HCl (Hydromorphone 0.5 Mg Inj) 0.5 mg IV NOW ONE Stop: 10/10/20 10:56 Last Admin: 10/10/20 11:05 Dose: 0.5 mg Documented by: HILARY Hydromorphone HCl (Hydromorphone 0.5 Mg Inj) 0.5 mg IV NOW ONE Stop: 10/10/20 11:51 Last Admin: 10/10/20 11:59 Dose: 0.5 mg Documented by: HILARY Hydromorphone HCl (Hydromorphone 1 Mg Inj) 1 mg IV NOW ONE Stop: 10/10/20 13:07 Last Admin: 10/10/20 13:18 Dose: 1 mg Documented by: GLENN Hydromorphone HCl (Hydromorphone 0.5 Mg Inj) 0.5 mg IV Q1HR GHISLAINE Stop: 10/11/20 06:00 Last Admin: 10/10/20 16:52 Dose: Not Given Documented by: ZAID Hydromorphone HCl (Hydromorphone 0.5 Mg Inj) 0.5 mg IV NOW ONE Stop: 10/10/20 16:53 Last Admin: 10/10/20 17:09 Dose: 0.5 mg Documented by: GLENN Sodium Chloride (Normal Saline 0.9%) 1,000 mls @ 1,000 mls/hr IV BOLUS ONE Stop: 10/10/20 11:54 Last Infusion: 10/10/20 14:35 Dose: 0 mls/hr Documented by: Admin: 10/10/20 11:05 Dose: 1,000 mls/hr Documented by: HILARY Ketorolac Tromethamine (Ketorolac 60 Mg/2 Ml Vial) 30 mg IV NOW ONE Stop: 10/10/20 14:39 Last Admin: 10/10/20 14:43 Dose: 30 mg Documented by: GLENN Lorazepam (Lorazepam 2 Mg/Ml Inj) 1 mg IV NOW ONE Stop: 10/10/20 14:39 Last Admin: 10/10/20 14:57 Dose: 1 mg Documented by: CHARLENEIN Metoclopramide HCl (Metoclopramide 10 Mg/2 Ml Inj) 10 mg IV NOW ONE Stop: 10/10/20 13:27 Last Admin: 10/10/20 13:29 Dose: 10 mg Documented by: CHARLENEIN Ondansetron HCl (Ondansetron 4 Mg/2 Ml Inj) 4 mg IV NOW ONE Stop: 10/10/20 10:56 Last Admin: 10/10/20 11:05 Dose: 4 mg Documented by: HILARY Consultations Consultation #1: Dr. Franco accepts after review of [facility] Time: 16:49 Vital Signs Vital signs: Vital Signs - 8 hr 10/10/20 11:03 10/10/20 11:30 10/10/20 11:39 Pulse Rate 86 79 74 Blood Pressure 178/81 H Pulse Oximetry 95 97 99 10/10/20 12:00 10/10/20 12:30 10/10/20 13:00 Pulse Rate 78 99 H Blood Pressure Pulse Oximetry 98 98 97 10/10/20 13:30 10/10/20 14:00 10/10/20 14:30 Pulse Rate 80 74 73 Blood Pressure Pulse Oximetry 97 99 97 10/10/20 16:01 10/10/20 16:02 10/10/20 16:30 Pulse Rate 91 H 84 81 Blood Pressure 139/95 H Pulse Oximetry 98 99 97 MDM - Abdominal Pain <JOSIAH Stevens - Last Filed: 10/10/20 16:28> Medical Records Attestation: I reviewed the patient's medical records. Lab Data Attestation: I reviewed the patient's lab results. Result diagrams: 10/10/20 10:40 10/10/20 10:40 Labs: Lab Results 10/10/20 10/10/20 10/10/20 Range/Units 10:40 10:40 10:40 WBC 15.5 H (4.5-11.0) X10^3/uL RBC 5.35 H (4.0-5.2) X10^6/uL Hgb 15.5 (12.0-16.0) g/dL Hct 45.9 (36-46) % MCV 85.8 (80-100) fL MCH 29.0 (26-34) PG MCHC 33.8 (30-36) % RDW 15.2 H (11.6-14.8) % Plt Count 381 (150-400) X10^3/uL Neut % (Auto) 72.6 (50-75) % Lymph % (Auto) 19.9 L (25-40) % [place] % (Auto) 4.9 (3-14) % Eos % (Auto) 1.5 L (2-4) % Baso % (Auto) 1.1 (0-2) % Neut # (Auto) 93464 H (9434-2679) /uL Lymph # (Auto) 3100 (0189-4447) /uL [place] # (Auto) 800 (0-900) /uL Eos # (Auto) 200 (0-450) /uL Baso # (Auto) 200 H (0-100) /uL Sodium 137 (137-145) mmol/L Potassium 3.9 (3.4-5.1) mmol/L Chloride 103 (98-107) mmol/L Carbon Dioxide 24 (22-32) mmol/L BUN 10 (7-17) mg/dL Creatinine 0.72 (0.52-1.04) mg/dL Estimated GFR > 60.0 (>60) mL/min BUN/Creatinine Ratio 13.9 (6-22) Glucose 164 H (70-100) mg/dL Calcium 9.9 (8.4-10.2) mg/dL Total Bilirubin 0.3 (0.2-1.3) mg/dL AST 48 H (14-36) IU/L ALT 15 (<35) IU/L Alkaline Phosphatase 119 (38-126) U/L Total Protein 9.0 H (6.3-8.2) g/dL Albumin 4.7 (3.5-5.0) g/dL Globulin 4.3 H (1.7-4.1) g/dL Albumin/Globulin Ratio 1.1 (1.0-2.8) Lipase 7574 H (23-300) U/L Ethyl Alcohol < 10 ( - 10) mg/dL SARS-CoV-2 (PCR) (Negative) 10/10/20 Range/Units 11:56 WBC (4.5-11.0) X10^3/uL RBC (4.0-5.2) X10^6/uL Hgb (12.0-16.0) g/dL Hct (36-46) % MCV (80-100) fL MCH (26-34) PG MCHC (30-36) % RDW (11.6-14.8) % Plt Count (150-400) X10^3/uL Neut % (Auto) (50-75) % Lymph % (Auto) (25-40) % [place] % (Auto) (3-14) % Eos % (Auto) (2-4) % Baso % (Auto) (0-2) % Neut # (Auto) (4849-1861) /uL Lymph # (Auto) (3130-4248) /uL [place] # (Auto) (0-900) /uL Eos # (Auto) (0-450) /uL Baso # (Auto) (0-100) /uL Sodium (137-145) mmol/L Potassium (3.4-5.1) mmol/L Chloride (98-107) mmol/L Carbon Dioxide (22-32) mmol/L BUN (7-17) mg/dL Creatinine (0.52-1.04) mg/dL Estimated GFR (>60) mL/min BUN/Creatinine Ratio (6-22) Glucose (70-100) mg/dL Calcium (8.4-10.2) mg/dL Total Bilirubin (0.2-1.3) mg/dL AST (14-36) IU/L ALT (<35) IU/L Alkaline Phosphatase (38-126) U/L Total Protein (6.3-8.2) g/dL Albumin (3.5-5.0) g/dL Globulin (1.7-4.1) g/dL Albumin/Globulin Ratio (1.0-2.8) Lipase (23-300) U/L Ethyl Alcohol ( - 10) mg/dL SARS-CoV-2 (PCR) Negative (Negative) Point of care testing: Urine Dip Bedside Urine Glucose Negative Bedside Urine Bilirubin - Negative Bedside Urine Ketone - Negative Urine Specific [place] 1.015 Bedside Urine Occult Blood - Negative Bedside Urine pH 6.5 Bedside Urine Protein - Negative Bedside Urine Urobilinogen - Negative Bedside Urine Nitrite - Negative Bedside Urine Leukocytes - Negative Esterase Imaging Data Abd US: Radiologist's Impression: [address] [id number] ReportSigned Patient: Brigid Otero [facility]#: [id number]: 1975Acct:[id number]/Sex: 45 / FDate of Service: 10/10/20Loc: EDAccession Number: [id number] Procedure: US abdomen limited Ordering Provider: Aurea Kelly PROCEDURE: US ABDOMEN LIMITED INDICATIONS: PANCREATITIS AND EPIGASTRIC PAIN TECHNIQUE: Real-time focused scanning was performed of the abdomen, with image documentation. COMPARISON: [facility], CT, CT ABDOMEN PELVIS W CON, 09/19/2020, 18:57. FINDINGS: The liver is normal in size and demonstrates no focal lesions. No findings of gallstones or sludge are seen. The gallbladder wall is not thickened, measuring 3 mm or less. No specific pericholecystic fluid is seen. The sonographic Wasserman sign is negative. There is no biliary dilatation, the common bile duct measures 3 mm. The pancreas demonstrates a heterogeneous appearance. The pancreatic duct is minimally prominent at 3.6 mm. There is an irregular ill-defined cystic lesion seen at the head of the pancreas, which is not well measured on this study. IMPRESSION: Heterogeneous pancreas with an ill-defined cystic lesion at the head of the pancreas. When clinically appropriate, a dedicated pancreas protocol CT or MRI (without and with contrast) would be recommended for further evaluation (assuming that there is no contraindication). There is minimal dilatation of the pancreatic duct. Dictated by: Jean Herbert M.D. on 10/10/2020 at 12:43 Approved by: Jean Herbert M.D. on 10/10/2020 at 12:46 ECG Data Interpretation: 1211: Normal sinus rhythm. Rate 79, MI interval 164, QTC 439. No ST elevation or ST depression. T-wave inversions noted in V1. EKG also viewed by Dr. Angel. [facility] Narrative Medical decision making narrative: 45yo female presenting to the ED for abdominal pain and vomiting. Patient appears to have acute on chronic pancreatitis at this time. Lipase significantly elevated to over 7000. Prior imaging from September shows ill-defining cystic lesion and dilation of the pancreatic duct which ultrasound today confirms. Due to patient's significant pain, difficulty managing pain, continued nausea, as well as elevated lipase, she is a candidate for admission. However, I discussed with the hospitalist, Dr. Franco who recommended MRCP to determine transfer or admission if ERCP is needed. Patient given multiple doses of pain medication, has been awake and alert continuing. No hypoxia. Patient requesting medication for MRI due to claustrophobia. Patient was given Toradol prior to Ativan for MRI to decrease combination of narcotics and benzos. Patient signed out to Dr. Angel for further evaluation at this time, MRI results pending. <Katerine Angel, DO - Last Filed: 10/10/20 19:01> Lab Data Attestation: I reviewed the patient's lab results. Labs: Lab Results 10/10/20 10/10/20 10/10/20 Range/Units 10:40 10:40 10:40 WBC 15.5 H (4.5-11.0) X10^3/uL RBC 5.35 H (4.0-5.2) X10^6/uL Hgb 15.5 (12.0-16.0) g/dL Hct 45.9 (36-46) % MCV 85.8 (80-100) fL MCH 29.0 (26-34) PG MCHC 33.8 (30-36) % RDW 15.2 H (11.6-14.8) % Plt Count 381 (150-400) X10^3/uL Neut % (Auto) 72.6 (50-75) % Lymph % (Auto) 19.9 L (25-40) % [place] % (Auto) 4.9 (3-14) % Eos % (Auto) 1.5 L (2-4) % Baso % (Auto) 1.1 (0-2) % Neut # (Auto) 06959 H (0016-2060) /uL Lymph # (Auto) 3100 (9244-6408) /uL [place] # (Auto) 800 (0-900) /uL Eos # (Auto) 200 (0-450) /uL Baso # (Auto) 200 H (0-100) /uL Sodium 137 (137-145) mmol/L Potassium 3.9 (3.4-5.1) mmol/L Chloride 103 (98-107) mmol/L Carbon Dioxide 24 (22-32) mmol/L BUN 10 (7-17) mg/dL Creatinine 0.72 (0.52-1.04) mg/dL Estimated GFR > 60.0 (>60) mL/min BUN/Creatinine Ratio 13.9 (6-22) Glucose 164 H (70-100) mg/dL Calcium 9.9 (8.4-10.2) mg/dL Total Bilirubin 0.3 (0.2-1.3) mg/dL AST 48 H (14-36) IU/L ALT 15 (<35) IU/L Alkaline Phosphatase 119 (38-126) U/L Total Protein 9.0 H (6.3-8.2) g/dL Albumin 4.7 (3.5-5.0) g/dL Globulin 4.3 H (1.7-4.1) g/dL Albumin/Globulin Ratio 1.1 (1.0-2.8) Lipase 7574 H (23-300) U/L Ethyl Alcohol < 10 ( - 10) mg/dL SARS-CoV-2 (PCR) (Negative) 10/10/20 Range/Units 11:56 WBC (4.5-11.0) X10^3/uL RBC (4.0-5.2) X10^6/uL Hgb (12.0-16.0) g/dL Hct (36-46) % MCV (80-100) fL MCH (26-34) PG MCHC (30-36) % RDW (11.6-14.8) % Plt Count (150-400) X10^3/uL Neut % (Auto) (50-75) % Lymph % (Auto) (25-40) % [place] % (Auto) (3-14) % Eos % (Auto) (2-4) % Baso % (Auto) (0-2) % Neut # (Auto) (2200-3688) /uL Lymph # (Auto) (8345-6436) /uL [place] # (Auto) (0-900) /uL Eos # (Auto) (0-450) /uL Baso # (Auto) (0-100) /uL Sodium (137-145) mmol/L Potassium (3.4-5.1) mmol/L Chloride (98-107) mmol/L Carbon Dioxide (22-32) mmol/L BUN (7-17) mg/dL Creatinine (0.52-1.04) mg/dL Estimated GFR (>60) mL/min BUN/Creatinine Ratio (6-22) Glucose (70-100) mg/dL Calcium (8.4-10.2) mg/dL Total Bilirubin (0.2-1.3) mg/dL AST (14-36) IU/L ALT (<35) IU/L Alkaline Phosphatase (38-126) U/L Total Protein (6.3-8.2) g/dL Albumin (3.5-5.0) g/dL Globulin (1.7-4.1) g/dL Albumin/Globulin Ratio (1.0-2.8) Lipase (23-300) U/L Ethyl Alcohol ( - 10) mg/dL SARS-CoV-2 (PCR) Negative (Negative) Point of care testing: Urine Dip Bedside Urine Glucose Negative Bedside Urine Bilirubin - Negative Bedside Urine Ketone - Negative Urine Specific [place] 1.015 Bedside Urine Occult Blood - Negative Bedside Urine pH 6.5 Bedside Urine Protein - Negative Bedside Urine Urobilinogen - Negative Bedside Urine Nitrite - Negative Bedside Urine Leukocytes - Negative Esterase Imaging Data MRCP: Radiologist's Impression: Brigid Otero 45 F [address] [id number] Resonance ReportSigned Patient: Brigid Otero DMR#: [id number]: 1975Acct:[id number]/Sex: 45 / FDate of Service: 10/10/20Loc: EDAccession Number: [id number] Procedure: MR abdomen wo/w con Ordering Provider: Aurea Kelly PROCEDURE: MR ABDOMEN WO/W CON INDICATIONS: Pancreatitis, pancreatic cyst, r/o biliary tree issues/stone TECHNIQUE: Coronal HASTE, axial 2D FLASH in- and [id number]; axial breath-hold T2 FSE with fat saturation from the hepatic dome to the iliac crests. Oblique coronal thin-slice and radial thick slab HASTE through the biliary system. Dynamic axial VIBE during administration of contrast. Post-contrast coronal VIBE or 2D FLASH with fat saturation from the hepatic dome to the iliac crests. Optional diffusion weighted imaging and ADC may be performed. COMPARISON: [facility], CT, CT ABDOMEN PELVIS W CON, 09/19/2020, 18:57. [facility], US, US ABDOMEN LIMITED, 10/10/2020, 12:47. FINDINGS: Image quality: Excellent. Pancreas and biliary system: The prior CT scanning 09/19/20 showed a pancreatic neck/body junction central posterior fluid collection within the pancreatic parenchyma of 1.9 cm maximal dimension. The current examination shows persistence of peripancreatic edema along the pancreatic head and uncinate process area and extending inferiorly along the retroperitoneum to a mild degree. The appearance is consistent with chronic pancreatitis. The pancreatic duct is slightly prominent through the pancreatic body and tail, and there is a nonenhancing ovoid fluid collection currently measuring up to 1.4 x 1.1 cm at the posterior pancreatic body near the pancreatic neck, correlated with the larger area of fluid collection in that region in mid September. Solid organs: Liver is normal in size and enhancement. Gallbladder appears normal. Spleen is normal in size and enhancement. No adrenal nodules. Kidneys are normal in size and enhancement, without hydronephrosis. Nodes and vessels: No retroperitoneal or mesenteric adenopathy by size criteria. Aorta and inferior vena cava are normal in size. Bowel and peritoneum: Unenhanced bowel loops are normal in caliber throughout. No free fluid. Lung bases: No basal pleural effusions. Heart size is normal. Bones and soft tissues: No ventral hernias. Bone marrow is normal in overall signal. IMPRESSION: There is persistent pancreatitis involving the pancreatic head and uncinate process, with mild peripancreatic edema in these areas, and also tracking inferiorly along the adjacent right posterior retroperitoneum. Contiguous with the posterior border of the pancreatic duct at the junction of the pancreatic neck and pancreatic body is a smaller ovoid fluid collection with reference to the prior CT scanning measuring 1.9 cm previously and 1.4 cm currently in maximal dimension. This likely is a intrapancreatic pseudocyst, but follow-up for improvement is recommended in 6 months preferably by repeat contrast-enhanced MR scanning. A discrete malignant-appearing pancreatic mass is not identified. Dictated by: René Duron M.D. on 10/10/2020 at 16:29 Approved by: René Duron M.D. on 10/10/2020 at 16:36 MDM Narrative Medical decision making narrative: Patient was signed out to myself by LORI Kelly while awaiting MRCP. Patient was seen by myself. She is uncomfortable still but had some pain medication given in the department which was helpful. Imaging was reviewed patient has chronic pancreatic like changes and what looks like possibly a pseudocyst there is a for ovoid fluid collection abutting the pancreatic duct but does not appear to be obstructed and no signs of choledocholithiasis or obstructino of the duct itself. Discussed with Dr. Franco who accepts for admission. Discharge Plan Departure Patient Disposition: Admitted As Inpatient Clinical Impression: Pancreatitis Admit Date/Time: 10/10/20 16:58 Admit Provider: Digna Franco
[2020-10-10 11:12] LABS: Add Manual Diff / Slide Review NO; Basophils Absolute Auto 200 /uL (0-100); Basophils Percent Auto 1.1 % (0-2); Eosinophils Absolute Auto 200 /uL (0-450); Eosinophils Percent Auto 1.5 % (2-4); Hematocrit 45.9 % (36-46); Hemoglobin 15.5 g/dL (12.0-16.0); Lymphocytes Absolute Auto 3100 /uL (1100-4500); Lymphocytes Percent Auto 19.9 % (25-40); Mean Corpuscular HGB Conc 33.8 % (30-36); Mean Corpuscular Volume 85.8 fL (80-100); Monocytes Absolute Auto 800 /uL (0-900); Monocytes Percent Auto 4.9 % (3-14); Neutrophils Absolute Auto 11200 /uL (1500-7000); Neutrophils Percent Auto 72.6 % (50-75); Platelet Count 381 X10^3/uL (150-400); Red Blood Cell Count 5.35 X10^6/uL (4.0-5.2); Red Cell Distribution Width 15.2 % (11.6-14.8); White Blood Cell Count 15.5 X10^3/uL (4.5-11.0)
[2020-10-10 11:18] LABS: Alanine Aminotransferase 15 IU/L (<35); Albumin 4.7 g/dL (3.5-5.0); Albumin Globulin Ratio 1.1 (1.0-2.8); Alkaline Phosphatase 119 U/L (38-126); Aspartate Aminotransferase 48 IU/L (14-36); BUN Creatinine Ratio 13.9 (6-22); Bilirubin Total 0.3 mg/dL (0.2-1.3); Blood Urea Nitrogen 10 mg/dL (7-17); Calcium 9.9 mg/dL (8.4-10.2); Carbon Dioxide 24 mmol/L (22-32); Chloride 103 mmol/L (98-107); Estimated Glomerular Filt Rate > 60.0 mL/min (>60); Globulin 4.3 g/dL (1.7-4.1); Glucose 164 mg/dL (70-100); Potassium 3.9 mmol/L (3.4-5.1); Sodium 137 mmol/L (137-145)
[2020-10-10 11:46] LABS: HEMOLYSIS 21 (0-50)
[2020-10-10 11:47] LABS: Lipase 7574 U/L (23-300)
--- NOTE | 2020-10-10 11:51 | DI.US.S_ITS ---
PROCEDURE: US ABDOMEN LIMITED INDICATIONS: PANCREATITIS AND EPIGASTRIC PAIN TECHNIQUE: Real-time focused scanning was performed of the abdomen, with image documentation. COMPARISON: [facility], CT, CT ABDOMEN PELVIS W CON, 09/19/2020, 18:57. FINDINGS: The liver is normal in size and demonstrates no focal lesions. No findings of gallstones or sludge are seen. The gallbladder wall is not thickened, measuring 3 mm or less. No specific pericholecystic fluid is seen. The sonographic Wasserman sign is negative. There is no biliary dilatation, the common bile duct measures 3 mm. The pancreas demonstrates a heterogeneous appearance. The pancreatic duct is minimally prominent at 3.6 mm. There is an irregular ill-defined cystic lesion seen at the head of the pancreas, which is not well measured on this study. IMPRESSION: Heterogeneous pancreas with an ill-defined cystic lesion at the head of the pancreas. When clinically appropriate, a dedicated pancreas protocol CT or MRI (without and with contrast) would be recommended for further evaluation (assuming that there is no contraindication). There is minimal dilatation of the pancreatic duct. Dictated by: Jean Herbert M.D. on 10/10/2020 at 12:43 Approved by: Jean Herbert M.D. on 10/10/2020 at 12:46
[2020-10-10 12:12] LABS: Ethanol (ETOH) < 10 mg/dL
[2020-10-10 12:21] LABS: COVID19 -Nasal RAPID Negative (Negative)
[2020-10-10] MEDS: HYDROMORPHONE 1 MG INJ IV ×3 (13:18→21:14)
[2020-10-10] MEDS: METOCLOPRAMIDE 10 MG/2 ML INJ IV (13:29)
--- NOTE | 2020-10-10 13:55 | DI.MRI.S_ITS ---
PROCEDURE: MR ABDOMEN WO/W CON INDICATIONS: Pancreatitis, pancreatic cyst, r/o biliary tree issues/stone TECHNIQUE: Coronal HASTE, axial 2D FLASH in- and [id number]; axial breath-hold T2 FSE with fat saturation from the hepatic dome to the iliac crests. Oblique coronal thin-slice and radial thick slab HASTE through the biliary system. Dynamic axial VIBE during administration of contrast. Post-contrast coronal VIBE or 2D FLASH with fat saturation from the hepatic dome to the iliac crests. Optional diffusion weighted imaging and ADC may be performed. COMPARISON: [facility], CT, CT ABDOMEN PELVIS W CON, 09/19/2020, 18:57. [facility], US, US ABDOMEN LIMITED, 10/10/2020, 12:47. FINDINGS: Image quality: Excellent. Pancreas and biliary system: The prior CT scanning 09/19/20 showed a pancreatic neck/body junction central posterior fluid collection within the pancreatic parenchyma of 1.9 cm maximal dimension. The current examination shows persistence of peripancreatic edema along the pancreatic head and uncinate process area and extending inferiorly along the retroperitoneum to a mild degree. The appearance is consistent with chronic pancreatitis. The pancreatic duct is slightly prominent through the pancreatic body and tail, and there is a nonenhancing ovoid fluid collection currently measuring up to 1.4 x 1.1 cm at the posterior pancreatic body near the pancreatic neck, correlated with the larger area of fluid collection in that region in mid September. Solid organs: Liver is normal in size and enhancement. Gallbladder appears normal. Spleen is normal in size and enhancement. No adrenal nodules. Kidneys are normal in size and enhancement, without hydronephrosis. Nodes and vessels: No retroperitoneal or mesenteric adenopathy by size criteria. Aorta and inferior vena cava are normal in size. Bowel and peritoneum: Unenhanced bowel loops are normal in caliber throughout. No free fluid. Lung bases: No basal pleural effusions. Heart size is normal. Bones and soft tissues: No ventral hernias. Bone marrow is normal in overall signal. IMPRESSION: There is persistent pancreatitis involving the pancreatic head and uncinate process, with mild peripancreatic edema in these areas, and also tracking inferiorly along the adjacent right posterior retroperitoneum. Contiguous with the posterior border of the pancreatic duct at the junction of the pancreatic neck and pancreatic body is a smaller ovoid fluid collection with reference to the prior CT scanning measuring 1.9 cm previously and 1.4 cm currently in maximal dimension. This likely is a intrapancreatic pseudocyst, but follow-up for improvement is recommended in 6 months preferably by repeat contrast-enhanced MR scanning. A discrete malignant-appearing pancreatic mass is not identified. Dictated by: René Duron M.D. on 10/10/2020 at 16:29 Approved by: René Duron M.D. on 10/10/2020 at 16:36
[2020-10-10] MEDS: KETOROLAC 60 MG/2 ML VIAL 30 MG IV (14:43)
[2020-10-10] MEDS: LORazepam 2 MG/ML INJ 1 MG IV (14:57)
--- NOTE | 2020-10-10 19:12 | PC.ADMIT ---
[id number] Admission Note: The patient,Brigid Otero,45 y/o, was given written information regarding hospital policies, unit procedures and contact persons. Patient's smoking status: Current every day smoker. Vital Signs - 8 hr 10/10/20 11:30 10/10/20 11:39 10/10/20 12:00 Temperature Pulse Rate 79 74 78 Respiratory Rate Blood Pressure 178/81 H Pulse Oximetry 97 99 98 10/10/20 12:30 10/10/20 13:00 10/10/20 13:30 Temperature Pulse Rate 99 H 80 Respiratory Rate Blood Pressure Pulse Oximetry 98 97 97 10/10/20 14:00 10/10/20 14:30 10/10/20 16:01 Temperature Pulse Rate 74 73 91 H Respiratory Rate Blood Pressure Pulse Oximetry 99 97 98 10/10/20 16:02 10/10/20 16:30 10/10/20 17:20 Temperature 97.0 F L Pulse Rate 84 81 75 Respiratory Rate 20 Blood Pressure 139/95 H 146/92 H Pulse Oximetry 99 97 99 Pt arrived in W/C @ 1720. Pt A/O x4, complaints of pain, notified MD that pt arrived and requested medication. Oriented to call system and advised to call staff when needs to get out of bed. Bed alarm on, call light within reach.
[2020-10-10 20:11] LABS: Magnesium 1.7 mg/dL (1.6-2.3)
--- NOTE | 2020-10-10 20:51 | PM.HP.1 ---
History of Present Illness History of Present Illness Date Patient Seen: 10/10/20 Time Patient Seen: 20:20 Chief complaint: throwing up, upper abdomen pain, upper back pain Narrative: Ms. Brigid Otero is a 45-year-old female with a past medical history significant for pancreatic pseudocyst, pancreatitis, hypertension, anxiety reports chronic low back pain with radiculopathy who presents to the ER with abdominal pain worsening over 24 hours and developing nausea vomiting this morning. The patient was admitted to the hospital under similar circumstances on 09/21 and discharged 09/22 diagnosed with a pancreatic pseudocyst. She complains of continuing and unrelenting severe epigastric and right-sided abdominal pain that is somewhat relieved with positioning. The patient was discharged with oral hydromorphone 4 mg every 4-6 hours as needed for pain however the patient ran out of pain medication 2 days ago and is experienced worsening abdominal pain since. She reports the previous hydromorphone dosing was stretched out taking it only at night along Xanax to be able to sleep since she has been unable to establish a primary care provider since her discharge to renew her prescription. The patient states her nausea is secondary to her pain. She in additionally complains of headache for 1 week located in the right parietal head and neck pain with stiffness and tension. She also reports intermittent chest pressure she relates to anxiety. The patient denies complaints of fevers or chills and denies nasal congestion or sore throat. She denies complaints of shortness of breath cough or wheezing. His Joshua pain is noted above nonbloody emesis. She reports occasional constipation and takes senna/docusate at bedtime nightly. She describes lower back pain right greater than left and states that her right leg will go completely numb at times. She reports no history of trauma or falls. The patient does endorse smoking marijuana to help with nausea. The patient reports a history of blood clots and is anticoagulated on Eliquis 5 mg twice daily. Upon arrival to the ER the patient has a temperature of 97.0?, heart rate of 75, blood pressure 146/92, respirations 20 saturating 98% on room air. An ultrasound the abdomen is stained finding heterogeneous appearing pancreas with mild pancreatic ductal dilatation, ill regularly ill-defined cystic lesion at the head of the pancreas. MRI of the abdomen pelvis finds persistent pancreatitis involving the head and use an 8 process, mild sammy pancreatic edema with tracking inferiorly into the right posterior retroperitoneum, the radiologist further nodes a smaller ovoid fluid collection at the junction of the pancreatic neck and pancreatic body that is 1.4 cm in maximal dimension and previous CT scanning was 1.9 cm likely representing intrapancreatic pseudocyst. Twelve lead EKG reveals sinus rhythm at a rate of 71 without ectopy, left anterior fascicular block, no ST or T-wave changes and no Q-waves evident. On laboratory analysis he has an elevated white count at 15.5 with increased absolute neutrophils 11,200. Hemoglobin is 15.5, hematocrit 45.9 and platelets 318. On electrolytes she has a sodium of 137, potassium 3.9, BUN of 10 and creatinine 0.72. Her nonfasting glucose is 164. Liver functions finds a total bilirubin of 0.3, elevated AST of 48, ALT of 15 and alkaline phosphatase 119. Her albumin is 4.7. Lipase is elevated at 7574. Alcohol level is less than 10. In the ER the patient received hydromorphone 0.5 mg x 4 in 1 mg x 2 along with Toradol, lorazepam and metoprolol per my and Zofran. The patient is admitted to the hospital service for persistent pancreatitis with pancreatic pseudocyst. PCP: None Patient History Medical History (Updated 10/10/20 @ 22:11 by JOSIAH Zayas) Anxiety Benign essential HTN Chronic low back pain Chronic pancreatitis Current use of shelter anticoagulation History of blood clots Pancreatic pseudocyst Surgical History History of appendectomy History of arthroscopy of both knees History of carpal tunnel release History of hysterectomy History of tubal ligation Hx of removal of ovary Family & Social History Family History Mother Heart attack COPD (chronic obstructive pulmonary disease) Hyperlipidemia Hypertension Father Alcoholism and drug addiction in family Brother Diabetes mellitus Murder of relative Brother No problems noted. Social History: household members spouse Safety & Behavioral: Feels Safe in Current Yes Environment Been Physically Hurt or No Threatened By a Person Suicidal Ideation Description None Suicide Plan Description No Plan Tobacco & Substance use: Tobacco type cigarettes,cannabis/marijuana Smoking Status Current every day smoker Smoking packs per day 0.5 alcohol intake never alcohol intake frequency other Substance Use Type marijuana Meds Home Medications and Allergies Home Medications Medication Instructions Recorded Confirmed Type Eliquis 5 mg PO BID 09/19/20 10/10/20 History amlodipine 10 mg PO DAILY 09/19/20 10/10/20 History losartan 50 mg PO BID 09/19/20 10/10/20 History pantoprazole [Protonix] 40 mg PO DAILY 09/19/20 10/10/20 History senna-docusate sodium 1 tab PO BEDTIME 09/19/20 10/10/20 History alprazolam [Xanax] 1 mg PO TID PRN 7 Days #15 tab 09/22/20 10/10/20 Rx hydroxyzine HCl 75 mg PO TID PRN 7 Days #24 tab 09/22/20 10/10/20 Rx trazodone 50 mg PO BEDTIME PRN 14 Days #14 09/22/20 10/10/20 Rx tab hydromorphone 4 mg PO Q4-6H PRN 10/10/20 10/10/20 History Allergies Allergy/AdvReac Type Severity Reaction Status Date / Time cortisone Allergy Verified 09/21/20 19:45 Review of Systems Review of Systems ROS: Yes All systems reviewed with the patient and are negative except as otherwise documented Exam Vital Signs (past 8 hours): - 10/10/20 13:00 10/10/20 13:30 10/10/20 14:00 Temperature Pulse Rate 80 74 Respiratory Rate Blood Pressure Pulse Oximetry 97 97 99 10/10/20 14:30 10/10/20 16:01 10/10/20 16:02 Temperature Pulse Rate 73 91 H 84 Respiratory Rate Blood Pressure 139/95 H Pulse Oximetry 97 98 99 10/10/20 16:30 10/10/20 17:20 10/10/20 19:30 Temperature 97.0 F L 97.0 F L Pulse Rate 81 75 77 Respiratory Rate 20 18 Blood Pressure 146/92 H 148/88 H Pulse Oximetry 97 99 99 10/10/20 20:02 Temperature Pulse Rate Respiratory Rate Blood Pressure Pulse Oximetry 99 Oxygen Delivery Method Room Air Oxygen Flow Rate 0 Narrative Exam Narrative: GENERAL APPEARANCE: well developed, well nourished female lying left lateral in position. HEENT: Normocephalic, PERRLA, conjunctiva clear, EOMs intact without nystagmus, mild right maxillary sinus sinus tenderness to percussion, no rhinorrhea, mucous membranes are moist and pink without lesions or exudate. NECK/THYROID: Decreased range of motion, prominent paraspinal cervical muscles, no JVD, no carotid bruit, no thyromegaly, trachea midline. LYMPH NODES: no cervical or supraclavicular lymphadenopathy. SKIN: [place], warm and dry, no visible lesions, rashes, ulcerations or petechiae. HEART: regular rate and rhythm, S1-S2, no murmur, no rubs or gallops, brisk capillary refill, 2+ dorsalis pedis pulses no edema LUNGS: clear to auscultation bilaterally, no coarseness crackles or wheezing, no cough present. CHEST: Symmetrical movement, no accessory muscle use, good tidal volume, no pain on AP lateral compression. ABDOMEN: Soft, no distention, epigastric with right upper and lower abdominal tenderness, no guarding or peritoneal signs, no organomegaly, no flank or suprapubic tenderness, hypoactive bowel tones. BACK: Normal curvature, palpable right lumbar paraspinal muscles, no step-offs or malalignment, no CVA tenderness on percussion EXTREMITIES: moves all extremities, strength is 5/5 and symmetrical, no deformities or joint effusions, no cyanosis or clubbing NEUROLOGIC: AAO x4, no focal neurologic deficits, cranial nerves II-XII grossly intact, sensation intact to light touch, hearing grossly normal to speech. PSYCH: Mildly anxious, cooperative with stable behavior. Objective Labs Result Diagrams: 10/10/20 10:40 10/10/20 10:40 Labs: Laboratory Results - last 24 hr 10/10/20 10/10/20 10/10/20 10:40 10:40 10:40 WBC 15.5 H RBC 5.35 H Hgb 15.5 Hct 45.9 MCV 85.8 MCH 29.0 MCHC 33.8 RDW 15.2 H Plt Count 381 Neut % (Auto) 72.6 Lymph % (Auto) 19.9 L [place] % (Auto) 4.9 Eos % (Auto) 1.5 L Baso % (Auto) 1.1 Neut # (Auto) 44658 H Lymph # (Auto) 3100 [place] # (Auto) 800 Eos # (Auto) 200 Baso # (Auto) 200 H Sodium 137 Potassium 3.9 Chloride 103 Carbon Dioxide 24 BUN 10 Creatinine 0.72 Estimated GFR > 60.0 BUN/Creatinine Ratio 13.9 Glucose 164 H Calcium 9.9 Magnesium Total Bilirubin 0.3 AST 48 H ALT 15 Alkaline Phosphatase 119 Total Protein 9.0 H Albumin 4.7 Globulin 4.3 H Albumin/Globulin Ratio 1.1 Lipase 7574 H Ethyl Alcohol < 10 SARS-CoV-2 (PCR) 10/10/20 10/10/20 10:40 11:56 WBC RBC Hgb Hct MCV MCH MCHC RDW Plt Count Neut % (Auto) Lymph % (Auto) [place] % (Auto) Eos % (Auto) Baso % (Auto) Neut # (Auto) Lymph # (Auto) [place] # (Auto) Eos # (Auto) Baso # (Auto) Sodium Potassium Chloride Carbon Dioxide BUN Creatinine Estimated GFR BUN/Creatinine Ratio Glucose Calcium Magnesium 1.7 Total Bilirubin AST ALT Alkaline Phosphatase Total Protein Albumin Globulin Albumin/Globulin Ratio Lipase Ethyl Alcohol SARS-CoV-2 (PCR) Negative Assessment & Plan Assessment & Plan narrative: This is a 45-year-old female patient who returns to the hospital for worsening abdominal pain after running out of her pain medication 2 days ago and developing nausea and vomiting. Patient has previous diagnosis of pancreatitis and pancreatic pseudocyst of unknown etiology. 1. Acute exacerbation of chronic idiopathic pancreatitis chronic, present on admission, active -patient with continuing abdominal pain since discharge from the hospital on 09/22/2020. The patient has been unable to establish PCP for refill of pain medication is since run out with worsening of pain. -elevated WBCs at 15.5, increase absolute neutrophils and 11,200, BUN is 10 and creatinine 0.72. Hyperglycemia with a nonfasting glucose of 164. Total bilirubin 0.3, AST 48 and ALT 50 with alkaline phosphatase of 119. MRI reveals persistent pancreatitis involving head and use an 8 process, mild sammy pancreatic edema tracking inferiorly, right posterior retroperitoneum with 1.4 cm intrahepatic pseudocyst. Elevated wbc's believed to be reactive and will hold off on antibiotics the patient remains afebrile. -patient was prescribed hydromorphone 4 mg p.o. every 4-6 hours as needed at time of discharge from previous admission. Patient reports uncontrolled pain, received multiple doses of hydromorphone in the ER. -ordered hydromorphone 1 mg IV every 4 hours for moderate pain and hydromorphone 2 mg IV every 4 hours for severe pain. Will evaluate patient's response to medication. -patient is NPO, once pain controlled and nausea adequately managed will trial patient on clear liquid diet advance as tolerated. -patient with elevated serum glucose of 164 on admission labs, ordered fingerstick blood sugars every 6 hours while NPO, change to a.c. HS when taking orals, coverage with low-dose correctional insulin as needed. 2. History of blood clots, current use long-term anticoagulation, not present on admission, stable -patient sources history multiple foci of blood clots. -continue home regimen of Eliquis 5 mg once daily and SCDs -encouraged smoking cessation. 3. Low back pain with right leg radiculopathy, present on admission, active. -patient describes position to ameliorate pain, reports low back pain right greater than left with palpable muscle spasms right lumbar spine -requested physical therapy to consult evaluate and treat. 4. Hypertension, chronic, stable. -blood pressure mildly elevated on admission at 146/92 elevated secondary to uncontrolled pain. -continue patient's amlodipine 10 mg and losartan 50 mg. -will follow blood pressures. 5. Anxiety, chronic, stable -continue home regimen of Apresoline 1 mg t.i.d. as needed, hydroxyzine 75 mg t.i.d. as needed and trazodone 50 mg at bedtime. 6. Constipation, chronic, stable -laxative dependent taking senna docusate sodium 1 tablet daily at bedtime. VTE prophylaxis: Anticoagulated on Eliquis, SCDs. IV fluid: Lactated Ringer's 125 cc/hour. Diet: NPO Code status: Full code, patient designates her Guillermo Otero to be her surrogate decision maker The patient is admitted to the hospital due to the severity of her symptoms requiring a complex treatment plan to prevent complications and adverse events. The patient is admitted as an inpatient requiring IV hydration, fluid and electrolyte management in the setting of persistent pancreatitis with pancreatic pseudocyst.
[2020-10-10] MEDS: ALPRAZolam 0.5 MG TABLET 1 MG PO (21:15)
[2020-10-10] MEDS: SODIUM CHLORIDE 0.9% 1,000 ML 125 ML IV (21:15)
[2020-10-10] MEDS: ACETAMINOPHEN 325 MG TABLET 650 MG PO (21:16)
[2020-10-10] MEDS: LOSARTAN 50 MG TABLET PO (21:16)
[2020-10-10] MEDS: TRAZODONE 50 MG TABLET PO (21:16)
[2020-10-10] MEDS: hydrOXYzine pamoate 25 MG CAPSULE 75 MG PO (21:17)
[2020-10-10] MEDS: APIXABAN 5 MG TABLET PO (21:17)
[2020-10-10] MEDS: LACTATED RINGERS 1,000 ML 125 ML IV (22:58)
[2020-10-11] VITALS (8 sets, daily range): BP systolic 110–137; BP diastolic 61–79; PULSE 62–73; RESP 14–20; TEMP 36–36.7; O2SAT 96–99
[2020-10-11] MEDS: ONDANSETRON 4 MG/2 ML INJ IV ×3 (00:15→17:22)
[2020-10-11] MEDS: HYDROMORPHONE 1 MG INJ IV ×5 (00:15→15:52)
[2020-10-11] MEDS: ALPRAZolam 0.5 MG TABLET 1 MG PO ×2 (05:42→12:26)
[2020-10-11 06:53] LABS: Add Manual Diff / Slide Review NO; Basophils Absolute Auto 0 /uL (0-100); Basophils Percent Auto 0.3 % (0-2); Eosinophils Absolute Auto 400 /uL (0-450); Eosinophils Percent Auto 4.3 % (2-4); Hemoglobin 13.2 g/dL (12.0-16.0); Lymphocytes Absolute Auto 3000 /uL (1100-4500); Lymphocytes Percent Auto 33.9 % (25-40); Mean Corpuscular Hemoglobin 28.5 PG (26-34); Mean Corpuscular Volume 86.3 fL (80-100); Monocytes Absolute Auto 700 /uL (0-900); Monocytes Percent Auto 7.6 % (3-14); Neutrophils Absolute Auto 4800 /uL (1500-7000); Neutrophils Percent Auto 53.9 % (50-75); Platelet Count 262 X10^3/uL (150-400); Red Blood Cell Count 4.64 X10^6/uL (4.0-5.2); Red Cell Distribution Width 15.1 % (11.6-14.8); White Blood Cell Count 8.9 X10^3/uL (4.5-11.0)
[2020-10-11 07:00] LABS: Alanine Aminotransferase 9 IU/L (<35); Albumin 3.7 g/dL (3.5-5.0); Albumin Globulin Ratio 1.1 (1.0-2.8); Alkaline Phosphatase 95 U/L (38-126); Aspartate Aminotransferase 41 IU/L (14-36); BUN Creatinine Ratio 18.6 (6-22); Bilirubin Total 0.4 mg/dL (0.2-1.3); Blood Urea Nitrogen 13 mg/dL (7-17); Carbon Dioxide 28 mmol/L (22-32); Chloride 104 mmol/L (98-107); Estimated Glomerular Filt Rate > 60.0 mL/min (>60); Globulin 3.4 g/dL (1.7-4.1); Glucose 92 mg/dL (70-100); HEMOLYSIS < 15 (0-50); Potassium 3.5 mmol/L (3.4-5.1); Sodium 136 mmol/L (137-145); Total Protein 7.1 g/dL (6.3-8.2)
[2020-10-11] MEDS: LACTATED RINGERS 1,000 ML 125 ML IV (07:36)
--- NOTE | 2020-10-11 09:22 | PT.IIE ---
Surgical History (Last Reviewed 10/10/20 @ 15:16 by JOSIAH Stevens) History of appendectomy History of arthroscopy of both knees History of carpal tunnel release History of hysterectomy History of tubal ligation Hx of removal of ovary Medical History (Last Updated 10/10/20 @ 22:11 by JOSIAH Zayas) Anxiety Benign essential HTN Chronic low back pain Chronic pancreatitis [facility] History of blood clots Pancreatic pseudocyst Physical Therapy Inpatient Evaluation/Re-Eval M1 PT/OT-IP Prior Functional Status Start: 10/11/20 10:44 Freq: NEEDED Status: Active Protocol: Document 10/11/20 09:22 AB (Rec: 10/11/20 10:56 AB [id number]) Medical Review Prior Functional Status Medical History Reviewed Yes Communication able to make needs known Mobility and Gait pt stated that she is modified independent with all mobilities and ambulation without AD but occasionally uses a 4WW for ambulation depending on how she feels. Social History Household Members spouse Living Arrangements Mobile home Number of Floors (Floors) One Floor Number of Stairs To Enter/Railing? 5 steps L rail ascending Home Environment Standard Height Toilet,Walk in Shower,Built-In Shower Seat Home Equipment Four Wheel Walker,Hand Held Shower Employment Status Unemployed M2 PT-IP Current Condition Start: 10/11/20 10:44 Freq: NEEDED Status: Active Protocol: Document 10/11/20 09:22 AB (Rec: 10/11/20 10:56 AB [id number]) Physical Therapy Current Condition Current Condition Evaluation Date 10/11/20 Treatment Diagnosis pancreatitis; difficulty in walking Onset Date 10/10/20 M3 PT-IP Subjective Start: 10/11/20 10:44 Freq: NEEDED Status: Active Protocol: Document 10/11/20 09:22 AB (Rec: 10/11/20 10:56 AB [id number]) Subjective Physical Therapy Visit Type Type Initial Evaluation Visit Start Time 09:22 Visit Stop Time 09:38 Total Visit Minutes 16 Number of PVC MONITOR Visits 0 Physical Therapy Visit Comments Patient Comments pt is agreeable to do PT Therapy Pain Assessment Pain When Pain Assessed At Rest Pain Present Pain Present Pain Reported Location Upper Abdomen Intensity 8 Scale Used Numeric (0 - 10) Pain Management Techniques Distraction,Modification of Treatment,Timing of Activity with Medications M4 PT-IP Mobility and Gait Start: 10/11/20 10:44 Freq: NEEDED Status: Active Protocol: Document 10/11/20 09:22 AB (Rec: 10/11/20 10:56 AB [email or web address]) PT-Bed Mobility Assessment Supine to Sit Supine to Sit Standby Assistance,Head of Bed Elevated Sit to Supine Sit to Supine Standby Assistance,Head of Bed Elevated PT-Transfer Assessment Sit to and From Stand Sit to and from Stand Standby Assistance Equipment Transfer Assistive Device Gait Belt Orthotic/Prosthetic Devices or Brace: No Comments Mobility Comments pt completed bed mobility SBA. ambulated without AD CGA with (+) LOB and pt needing to hold on to the wall for support. ambulated towards the stairs and completed stair climbing CGA and cues using B rails. pt ambulated back to her room and requested to go back to bed. positioned in bed. call light and table within reach. informed pt regarding use of FWW at this time for safety and agreed. Gait Assessment Gait Gait Assistance Required: Contact Guard Assist Distance (Feet) 75 Able to Maintain Weight Bearing Status Yes During Gait Assistive Devices Assistive Device Gait Belt Orthotic/Prosthetic Devices or Brace: No Gait Deviations General Gait Pattern Antalgic Factors Limiting Gait Function Factors Limiting Gait Function Decreased Activity Tolerance, Decreased Strength,Limited Range of Motion,Pain,Poor Balance,Poor Safety Awareness Comments Gait Comments ambulated ~ 75 ft x 2 CGA without AD with (+) LOB. recommending use of FWW at this time. Stair Climbing Assessment Evaluation Level of Assist On Stairs Contact Guard Assistance Devices Stair Climbing Assistive Devices Left Railing,Right Railing Technique/Endurance Stair Climbing Direction Ascend and Descend Stair Climbing Technique Step to Step Number of Steps Climbed 3 Query Text: Stair Climbing Set # Repetitions (reps) 1 PT-Balance Assessment Sitting Balance and Reactions Static Sitting Balance Ability Good Dynamic Sitting Balance Ability Good Standing Balance and Reactions Static Standing Balance Ability Fair Dynamic Standing Balance Ability Fair Device Used without AD M5 PT-IP Objective Assessments Start: 10/11/20 10:44 Freq: NEEDED Status: Active Protocol: Document 10/11/20 09:22 AB (Rec: 10/11/20 10:56 AB [email or web address]) Orientation Orientation/Cognition Level of Alertness Alert Orientation Name,Place,Situation Language Function Ability No Deficits Noted Safety Awareness Decreased Safety Awareness Memory Description No Deficits Noted Gross Range of Motion Lower Extremity ROM Assessment Within Functional Limits Strength Lower Extremity Strength Hip 4-/5 Knee 4-/5 Coordination Assessment Gross Coordination Gross Coordination WNL Muscle Tone Muscle Tone WNL Yes M6 PT-IP Treatment Start: 10/11/20 10:44 Freq: NEEDED Status: Active Protocol: Document 10/11/20 09:22 AB (Rec: 10/11/20 10:56 AB [email or web address]) Physical Therapy Treatment Education Education Provided Safety M7 PT-IP Assessment and Plan Start: 10/11/20 10:44 Freq: NEEDED Status: Active Protocol: Document 10/11/20 09:22 AB (Rec: 10/11/20 10:56 AB [email or web address]) PT Summary Assessment and Plan Potential Rehabilitation Potential Good Status of Condition at Evaluation Evolving Summary Impairments Pain,ROM,Strength,Balance, Coordination,Sensation,Tone, Cognition,Bed Mobility, Transfers,Gait,Activity Tolerance Assessment Summary pt requiring CGA with mobility and presents with overall weakness with decrearse activity tolerance affecting balance and functional level. pt will likely improve during hospital stay. pt plans to go home and spouse will assist pt at home. will continue to assess progress. Goals Bed Mobility Goal Independent Transfer Goal Independent,Front Wheeled Walker,Four Wheeled Walker Gait Goal Independent,Front Wheel Walker ,Four Wheel Walker Gait Distance 200 Other Goals ambulation without AD 250 ft Independent up/down 5 steps L rail ascending SBA Days to Meet Goals 10 Frequency of Treatment Frequency Of Treatment Once a Day Treatment Plan Physical Therapy Treatment Plan Bed Mobility Training,Transfer Training,Gait Training, Therapeutic Exercise,Balance Retraining,Discharge Planning, Neuromuscular Re-ed Other Recommendations and Next Treatment ambulation Focus Recommendations To Nursing Amount of Assist Needed 1 Person Assist Discharge Recommendations PT Discharge Recommendations Home with Assistance,Home Health Transportation Needs at Discharge Private Vehicle
[2020-10-11] MEDS: AMLODIPINE 5 MG TABLET 10 MG PO (09:27)
[2020-10-11] MEDS: PANTOPRAZOLE 40 MG VIAL IV (09:27)
[2020-10-11] MEDS: hydrOXYzine pamoate 25 MG CAPSULE 75 MG PO ×2 (09:27→17:22)
[2020-10-11] MEDS: APIXABAN 5 MG TABLET PO ×2 (09:27→20:27)
[2020-10-11] MEDS: LOSARTAN 50 MG TABLET PO ×2 (09:27→20:27)
[2020-10-11] MEDS: DEXTROSE 5% WATER 1,000 ML 125 ML IV ×2 (12:31→20:32)
--- NOTE | 2020-10-11 16:09 | PC.NURSE ---
Addendum entered by Ana Hinton R.N. 10/11/20 21:47: Pt med several times for discomfort/ nausea. CBG @ 1800 87 Up ad briana in room IVF D5 infusing into RAC @ 125cc/hr via pump w/o incidence Call light w/in reach, calls appropriately for needs. Original Note: Pt resting at this time. Med w/IVP dilaudid for 8/10 abdominal discomfort. Lungs clear, SpO2 96% RA Abdomen soft, tender, + BT. IVF infusing as per MD orders w/o [employer]. Call light w/in reach, gbed alarm on for pt safety.
--- NOTE | 2020-10-11 17:37 | CM.DANOTE ---
DCP/Assessment: Reviewed chart. Patient is a 45yr old female admitted to [facility] with abdominal pain. Patient currently without PCP. Primary payor is 1)[facility] out of [place]. Met with patient explained CM/SW role. Patient reports that she is primarily I in all ADL's. Patient resides with spouse and does not anticipate any d/c planning needs. Patient independently went to the bathroom during [employer] visit. Patient does report that she would like list of PCP's in [facility]. Patient moved to [place] from [place] in July 2020. Patient reports that she has tried to obtain PCP through [facility] but has had no luck. [facility] provided patient with number of local PCP offices to check with. Patient in agreement that she would benefit from having PCP. Patient denies additional SW needs at this time. Anticipate home with spouse when stable. P: Home, community resources provided for PCP's. JACQUELIN Peters Discharge Planning/Care Management CM Discharge Assessment Start: 10/11/20 17:30 Freq: Status: Active Protocol: Document 10/11/20 17:30 KJS (Rec: 10/11/20 17:37 KJS [id number]) Discharge Planning Assessment Assigned Allergist/Md JACQUELIN Peters Contact Information Guillermo Otero (spouse) Advance Directives? No History Provided By Patient,Medical Record Prior Living Arrangements Mobile home Household Members spouse Independent with ADL's Yes Is patient alert and oriented? Yes DME Already Rented / Owned FWW / Walker Comment Patient uses walker prn. Barriers to Discharge No Referrals Initiated Other Whiteboard Updated in Patient Room with Yes name and ext. # of Allergist/Md Review Status In Process Next Review Type Continued Stay Review
--- NOTE | 2020-10-11 17:40 | PM.PN.1 ---
Subjective Subjective Date Patient Seen: 10/11/20 Time Patient Seen: 11:30 Interval history: melonie Otero is a 45-year-old female with a past medical history significant for pancreatic pseudocyst, pancreatitis, hypertension, anxiety reports chronic low back pain with radiculopathy who was admitted with acute on chronic pancreatitis. She was trying to manage as an outpatient with chronic pain control, had not established with a primary care provider so when she ran out of medications her pain became very severe. She still complains of worsened abdominal pain, requiring an increase in her IV Dilaudid frequency as it was not lasting her very long. She is unable to take oral intake at this time and will remain NPO to give her further rest until tomorrow. Her lipase on admission was 7500. MRI showed evidence of acute on chronic inflammation, but no discrete pancreatic mass. Exam Vital Signs (past 8 hours): - 10/11/20 12:08 10/11/20 15:45 Temperature 98.0 F 97.1 F L Pulse Rate 66 66 Respiratory Rate 15 16 Blood Pressure 114/68 110/75 Pulse Oximetry 99 98 Oxygen Delivery Method Room Air Oxygen Flow Rate 0 Narrative Exam Narrative: GENERAL APPEARANCE: well developed, well nourished female lying left lateral in position. HEENT: Normocephalic, PERRLA, conjunctiva clear, EOMs intact without nystagmus, mild right maxillary sinus sinus tenderness to percussion, no rhinorrhea, mucous membranes are moist and pink without lesions or exudate. NECK/THYROID: Decreased range of motion, prominent paraspinal cervical muscles, no JVD, no carotid bruit, no thyromegaly, trachea midline. LYMPH NODES: no cervical or supraclavicular lymphadenopathy. SKIN: [place], warm and dry, no visible lesions, rashes, ulcerations or petechiae. HEART: regular rate and rhythm, S1-S2, no murmur, no rubs or gallops, brisk capillary refill, 2+ dorsalis pedis pulses no edema LUNGS: clear to auscultation bilaterally, no coarseness crackles or wheezing, no cough present. CHEST: Symmetrical movement, no accessory muscle use, good tidal volume, no pain on AP lateral compression. ABDOMEN: Soft, no distention, epigastric with right upper and lower abdominal tenderness, no guarding or peritoneal signs, no organomegaly, no flank or suprapubic tenderness, hypoactive bowel tones. BACK: Normal curvature, palpable right lumbar paraspinal muscles, no step-offs or malalignment, no CVA tenderness on percussion EXTREMITIES: moves all extremities, strength is 5/5 and symmetrical, no deformities or joint effusions, no cyanosis or clubbing NEUROLOGIC: AAO x4, no focal neurologic deficits, cranial nerves II-XII grossly intact, sensation intact to light touch, hearing grossly normal to speech. PSYCH: Mildly anxious, cooperative with stable behavior. Objective Labs Result Diagrams: 10/11/20 06:15 10/11/20 06:15 Labs: Laboratory Results - last 24 hr 10/10/20 10/11/20 10/11/20 10:40 06:15 06:15 WBC 8.9 RBC 4.64 Hgb 13.2 Hct 40.0 MCV 86.3 MCH 28.5 MCHC 33.0 RDW 15.1 H Plt Count 262 Neut % (Auto) 53.9 Lymph % (Auto) 33.9 [place] % (Auto) 7.6 Eos % (Auto) 4.3 H Baso % (Auto) 0.3 Neut # (Auto) 4800 Lymph # (Auto) 3000 [place] # (Auto) 700 Eos # (Auto) 400 Baso # (Auto) 0 Sodium 136 L Potassium 3.5 Chloride 104 Carbon Dioxide 28 BUN 13 Creatinine 0.70 Estimated GFR > 60.0 BUN/Creatinine Ratio 18.6 Glucose 92 Calcium 9.0 Magnesium 1.7 Total Bilirubin 0.4 AST 41 H ALT 9 Alkaline Phosphatase 95 Total Protein 7.1 Albumin 3.7 Globulin 3.4 Albumin/Globulin Ratio 1.1 [facility] Medical History (Updated 10/10/20 @ 22:11 by JOSIAH Zayas) Anxiety Benign essential HTN Chronic low back pain Chronic pancreatitis Current use of executive vice president anticoagulation History of blood clots Pancreatic pseudocyst Surgical History History of appendectomy History of arthroscopy of both knees History of carpal tunnel release History of hysterectomy History of tubal ligation Hx of removal of ovary Family History Mother Heart attack COPD (chronic obstructive pulmonary disease) Hyperlipidemia Hypertension Father Alcoholism and drug addiction in family Brother Diabetes mellitus Murder of relative Brother No problems noted. Social History household members: spouse Smoking Status: Current every day smoker alcohol intake: never Assessment & Plan Assessment & Plan narrative: This is a 45-year-old female patient who returns to the hospital for worsening abdominal pain after running out of her pain medication 2 days ago and developing nausea and vomiting. She is admitted with acute on chronic pancreatitis. 1. Acute exacerbation of chronic idiopathic pancreatitis chronic, present on admission, active -patient with continuing abdominal pain since discharge from the hospital on 09/22/2020. The patient has been unable to establish PCP for refill of pain medication is since run out with worsening of pain. -elevated WBCs at 15.5, increase absolute neutrophils and 11,200, BUN is 10 and creatinine 0.72. Likely reactive as patient afebrile and now improved this AM. Hyperglycemia with a nonfasting glucose of 164. Total bilirubin 0.3, AST 48 and ALT 50 with alkaline phosphatase of 119. Lipase on admission 7500. - MRI reveals persistent pancreatitis involving head and uncinate process, mild sammy pancreatic edema tracking inferiorly, right posterior retroperitoneum with 1.4 cm intrahepatic pseudocyst. -patient was prescribed hydromorphone 4 mg p.o. every 4-6 hours as needed at time of discharge from previous admission. Patient reports uncontrolled pain, received multiple doses of hydromorphone in the ER. -ordered hydromorphone 1 mg IV every 4 hours for moderate pain and hydromorphone 2 mg IV every 4 hours for severe pain initially, now increased to q3 hours today. -patient is NPO, once pain controlled and nausea adequately managed will trial patient on clear liquid diet advance as tolerated. -patient with elevated serum glucose of 164 on admission labs, dropping slighly to the 70s today and now on D5W for fluids.. 2. History of blood clots, current use long-term anticoagulation, not present on admission, stable -patient sources history multiple foci of blood clots. -continue home regimen of Eliquis 5 mg once daily and SCDs -encouraged smoking cessation. 3. Low back pain with right leg radiculopathy, present on admission, active. -patient describes position to ameliorate pain, reports low back pain right greater than left with palpable muscle spasms right lumbar spine -requested physical therapy to consult evaluate and treat. 4. Hypertension, chronic, stable. -blood pressure mildly elevated on admission at 146/92 elevated secondary to uncontrolled pain. -continue patient's amlodipine 10 mg and losartan 50 mg. -will follow blood pressures. 5. Anxiety, chronic, stable -continue home regimen of Apresoline 1 mg t.i.d. as needed, hydroxyzine 75 mg t.i.d. as needed and trazodone 50 mg at bedtime. 6. Constipation, chronic, stable -laxative dependent taking senna docusate sodium 1 tablet daily at bedtime. VTE prophylaxis: Anticoagulated on Eliquis, SCDs. IV fluid: D5W Diet: NPO Code status: Full code, patient designates her Guillermo Otero to be her surrogate decision maker
[2020-10-11] MEDS: SENNOSIDES 8.6 MG TABLET PO (20:27)
[2020-10-11] MEDS: DOCUSATE 100 MG CAPSULE PO (20:27)
[2020-10-12 00:09] VITALS: BP 106/66; PULSE 74; RESP 16; TEMP 36.9; O2SAT 95
[2020-10-12] MEDS: HYDROMORPHONE 1 MG INJ IV ×2 (00:24→01:37)
[2020-10-12] MEDS: TRAZODONE 50 MG TABLET PO (00:35)
[2020-10-12] MEDS: ALPRAZolam 0.5 MG TABLET 1 MG PO ×3 (01:37→20:29)
[2020-10-12] MEDS: ONDANSETRON 4 MG/2 ML INJ IV ×4 (01:43→20:22)
[2020-10-12 06:01] VITALS: BP 96/54; PULSE 72; RESP 16; TEMP 36.9; O2SAT 96
[2020-10-12] MEDS: DEXTROSE 5% WATER 1,000 ML 125 ML IV (07:30)
[2020-10-12 08:32] VITALS: BP 98/67; PULSE 63; RESP 16; TEMP 36.6; O2SAT 96
[2020-10-12] MEDS: APIXABAN 5 MG TABLET PO ×2 (08:35→20:22)
[2020-10-12] MEDS: PANTOPRAZOLE 40 MG VIAL IV (08:35)
[2020-10-12] MEDS: SODIUM CHLORIDE 0.9% FLUSH 10 ML IV ×2 (10:20→20:24)
[2020-10-12] MEDS: HYDROMORPHONE 2 MG INJ IV (10:20)
[2020-10-12] MEDS: hydrOXYzine pamoate 25 MG CAPSULE 75 MG PO ×2 (10:27→15:49)
--- NOTE | 2020-10-12 10:32 | PT.IPTN ---
Current Diagnoses Other chronic pancreatitis (10/10/20) Physical Therapy Treatment Note M2 PT-IP Current Condition Start: 10/11/20 10:44 Freq: NEEDED Status: Active Protocol: Document 10/11/20 09:22 AB (Rec: 10/11/20 10:56 AB [id number]) Physical Therapy Current Condition Current Condition Evaluation Date 10/11/20 Treatment Diagnosis pancreatitis; difficulty in walking Onset Date 10/10/20 M3 PT-IP Subjective Start: 10/11/20 10:44 Freq: NEEDED Status: Active Protocol: Document 10/12/20 10:32 AB (Rec: 10/12/20 11:27 AB [id number]) Subjective Physical Therapy Visit Type Type Treatment Note Visit Start Time 10:32 Visit Stop Time 10:48 Total Visit Minutes 16 Number of RESIDENT ASSISTANT Visits 0 Physical Therapy Visit Comments Patient Comments pt is agreeable to do PT Therapy Pain Assessment Pain When Pain Assessed At Rest Pain Present Pain Present Pain Reported Location Upper Abdomen Intensity 5 Scale Used Numeric (0 - 10) M4 PT-IP Mobility and Gait Start: 10/11/20 10:44 Freq: NEEDED Status: Active Protocol: Document 10/12/20 10:32 AB (Rec: 10/12/20 11:27 AB [id number]) PT-Bed Mobility Assessment Supine to Sit Supine to Sit Standby Assistance,Head of Bed Elevated Sit to Supine Sit to Supine Standby Assistance,Head of Bed Elevated PT-Transfer Assessment Sit to and From Stand Sit to and from Stand Standby Assistance Equipment Transfer Assistive Device Gait Belt,Front Wheeled Walker Orthotic/Prosthetic Devices or Brace: No Comments Mobility Comments pt seems drowsy and nurse stated that she just gave pt her pain meds. completed supine to sit with HOB elevated SBA. ambulated ~ 250 ft using FWW SBA to CGA and cues for safety. Due to pt appearing drowsy and for safety concerns, opted to use FWW for ambulation at this time. pt is agreeable to use FWW. pt refused to sit up on chair and stated that she will sit up on the bed. pt ambualted back to her room completed sit to supine SBA. call ight and table placed within reach. Gait Assessment Gait Gait Assistance Required: Standby Assistance,Contact Guard Assist Distance (Feet) 250 Able to Maintain Weight Bearing Status Yes During Gait Assistive Devices Assistive Device Gait Belt,Front Wheeled Walker Orthotic/Prosthetic Devices or Brace: No Gait Deviations General Gait Pattern Antalgic,Decreased Stride Length,Decreased Feet Clearance,Step-to Gait Factors Limiting Gait Function Factors Limiting Gait Function Decreased Activity Tolerance, Decreased Strength,Limited Range of Motion,Pain,Poor Balance,Poor Safety Awareness M5 PT-IP Objective Assessments Start: 10/11/20 10:44 Freq: NEEDED Status: Active Protocol: Document 10/11/20 09:22 AB (Rec: 10/11/20 10:56 AB [id number]) Orientation Orientation/Cognition Level of Alertness Alert Orientation Name,Place,Situation Language Function Ability No Deficits Noted Safety Awareness Decreased Safety Awareness Memory Description No Deficits Noted Gross Range of Motion Lower Extremity ROM Assessment Within Functional Limits Strength Lower Extremity Strength Hip 4-/5 Knee 4-/5 Coordination Assessment Gross Coordination Gross Coordination WNL Muscle Tone Muscle Tone WNL Yes M6 PT-IP Treatment Start: 10/11/20 10:44 Freq: NEEDED Status: Active Protocol: Document 10/12/20 10:32 AB (Rec: 10/12/20 11:27 AB [id number]) Physical Therapy Treatment Education Education Provided Safety M7 PT-IP Assessment and Plan Start: 10/11/20 10:44 Freq: NEEDED Status: Active Protocol: Document 10/12/20 10:32 AB (Rec: 10/12/20 11:27 AB [email or web address]) PT Summary Assessment and Plan Potential Rehabilitation Potential Good Summary Impairments Pain,ROM,Strength,Balance,Tone ,Cognition,Bed Mobility, Transfers,Gait,Activity Tolerance Progress Towards Goals Slow Progress due to Medical Issues Assessment Summary pt requiring SBA to CGA with ambulation using FWW. pt will have her spouse to assist her at home. pt may go home when medically stable. Goals Bed Mobility Goal Independent Transfer Goal Independent,Front Wheeled Walker,Four Wheeled Walker Gait Goal Independent,Front Wheel Walker ,Four Wheel Walker Gait Distance 200 Other Goals ambulation without AD 250 ft Independent up/down 5 steps L rail ascending SBA Days to Meet Goals 10 Frequency of Treatment Frequency Of Treatment Once a Day Treatment Plan Physical Therapy Treatment Plan Bed Mobility Training,Transfer Training,Gait Training, Therapeutic Exercise,Balance Retraining,Discharge Planning, Neuromuscular Re-ed Other Recommendations and Next Treatment ambulation Focus Recommendations To Nursing Amount of Assist Needed 1 Person Assist Discharge Recommendations PT Discharge Recommendations Home with Assistance,Home Health Transportation Needs at Discharge Private Vehicle
[2020-10-12 11:53] VITALS: BP 100/68; PULSE 63; RESP 16; TEMP 36.6; O2SAT 97
[2020-10-12] MEDS: HYDROMORPHONE 4 MG TABLET PO ×2 (15:04→19:09)
[2020-10-12 15:25] VITALS: BP 113/75; PULSE 74; RESP 17; TEMP 36.5; O2SAT 99
--- NOTE | 2020-10-12 15:40 | PC.NURSE ---
Abd/loc: Teary this am, reports she had requested numerous times her IV needed to be restarted since it was beeping all the time and she can't sleep. IV was restarted. Later pt reported to COLTEN Garcias she had not seen a nurse all day, had not seen any doctor since she had been admitted here. This typewriter repairer had already seen patient and spoke with her about the poc. Dr. Wesley made aware pt states she hasn't seen anyone and she doesn't know what is going on, wants her MRI and lab results. Dr Wesley stated he would be in and speak with pt again but he had seen her yesterday and gave her the results of her MRI and labs then. Pt reported she is unhappy with the care she has received. She will be filing a complaint and was given Rachel Lea's number to either call or write to her. Diet was increased to her request. Dr. Wesley went in and saw pt at about 1330. An hour later the patient called saying MD had never been there. She was told MD had been here and spoke with her. She did not believe this typewriter repairer and called her spouse. Spouse confirmed for pt MD had been there. Pt then said she was never given the results of her MRI. The results of the MRI were read to here. Pt was also switched from IV meds to oral meds and got her first dose of oral dilaudid. She had many questions about her care, lab, MRI, all were answered to the best of this writers ability. MD is aware that patient is forgetting info given to her.
--- NOTE | 2020-10-12 16:06 | PM.PN.1 ---
Subjective Subjective Date Patient Seen: 10/12/20 Time Patient Seen: 16:06 Interval history: rBigid Otero is a 45-year-old female with a past medical history significant for pancreatic pseudocyst, pancreatitis, hypertension, anxiety reports chronic low back pain with radiculopathy who was admitted with acute on chronic pancreatitis. Her pain has been well controlled with 2 mg of IV Dilaudid, but 1 mg does not seem to cut it for her. Her nausea has improved and the patient was able to trial clears for lunch. I have also transitioned her to oral Dilaudid in hopes that this will last longer. The patient also gets intermittently agitated and forgets that I have visited her earlier in the day. I suspect this may be related to the amount of narcotics she has been receiving thus far. She denies any complaints of chest pain, shortness of breath, vomiting, dysuria, urinary frequency, lower extremity swelling. She denies any fevers, or chills. Her blood pressure has been slightly on the low side and have held her antihypertensives today. Exam Vital Signs (past 8 hours): - 10/12/20 08:32 10/12/20 11:53 Temperature 98 F 97.8 F Pulse Rate 63 63 Respiratory Rate 16 16 Blood Pressure 98/67 100/68 Pulse Oximetry 96 97 Oxygen Delivery Method Room Air Oxygen Flow Rate 0 Narrative Exam Narrative: GENERAL APPEARANCE: well developed, well nourished female lying left lateral in position. HEENT: Normocephalic, PERRLA, conjunctiva clear, EOMs intact without nystagmus, mild right maxillary sinus sinus tenderness to percussion, no rhinorrhea, mucous membranes are moist and pink without lesions or exudate. NECK/THYROID: Decreased range of motion, prominent paraspinal cervical muscles, no JVD, no carotid bruit, no thyromegaly, trachea midline. LYMPH NODES: no cervical or supraclavicular lymphadenopathy. SKIN: [place], warm and dry, no visible lesions, rashes, ulcerations or petechiae. HEART: regular rate and rhythm, S1-S2, no murmur, no rubs or gallops, brisk capillary refill, 2+ dorsalis pedis pulses no edema LUNGS: clear to auscultation bilaterally, no coarseness crackles or wheezing, no cough present. CHEST: Symmetrical movement, no accessory muscle use, good tidal volume, no pain on AP lateral compression. ABDOMEN: Soft, no distention, epigastric with right upper and lower abdominal tenderness, no guarding or peritoneal signs, no organomegaly, no flank or suprapubic tenderness, hypoactive bowel tones. BACK: Normal curvature, palpable right lumbar paraspinal muscles, no step-offs or malalignment, no CVA tenderness on percussion EXTREMITIES: moves all extremities, strength is 5/5 and symmetrical, no deformities or joint effusions, no cyanosis or clubbing NEUROLOGIC: AAO x4, no focal neurologic deficits, cranial nerves II-XII grossly intact, sensation intact to light touch, hearing grossly normal to speech. PSYCH: Mildly anxious, cooperative with stable behavior. Objective Labs Result Diagrams: 10/11/20 06:15 10/11/20 06:15 [facility] Medical History (Updated 10/10/20 @ 22:11 by JOSIAH Zayas) Anxiety Benign essential HTN Chronic low back pain Chronic pancreatitis Current use of local intermodal truck driver anticoagulation History of blood clots Pancreatic pseudocyst Surgical History History of appendectomy History of arthroscopy of both knees History of carpal tunnel release History of hysterectomy History of tubal ligation Hx of removal of ovary Family History Mother Heart attack COPD (chronic obstructive pulmonary disease) Hyperlipidemia Hypertension Father Alcoholism and drug addiction in family Brother Diabetes mellitus Murder of relative Brother No problems noted. Social History household members: spouse Smoking Status: Current every day smoker alcohol intake: never Assessment & Plan Assessment & Plan narrative: This is a 45-year-old female patient who returns to the hospital for worsening abdominal pain after running out of her pain medication 2 days prior to admission. She is admitted with acute on chronic pancreatitis. 1. Acute exacerbation of chronic idiopathic pancreatitis chronic, present on admission, active -patient with continuing abdominal pain since discharge from the hospital on 09/22/2020. The patient has been unable to establish PCP for refill of pain medication has since run out with worsening of pain. - MRI on admission reveals persistent pancreatitis involving head and uncinate process, mild sammy pancreatic edema tracking inferiorly, right posterior retroperitoneum with 1.4 cm intrahepatic pseudocyst. -patient was prescribed hydromorphone 4 mg p.o. every 4-6 hours as needed at time of discharge from previous admission. -pain control now with PO diladid home dosing at 4 mg PO Q4 hours with IV 2 mg for breakthrough. Try to limit given forgetfullness. -advance diet as tolerated, advanced to clears this afternoon. 2. History of blood clots, current use long-term anticoagulation, not present on admission, stable -patient sources history multiple foci of blood clots. -continue home regimen of Eliquis 5 mg once daily and SCDs -encouraged smoking cessation. 3. Low back pain with right leg radiculopathy, present on admission, active. -patient describes position to ameliorate pain, reports low back pain right greater than left with palpable muscle spasms right lumbar spine -requested physical therapy to consult evaluate and treat. 4. Hypertension, chronic, stable. -blood pressure mildly elevated on admission at 146/92 elevated secondary to uncontrolled pain, with improved pain she is normotensive. Will hold antihypertensives at this time. -will follow blood pressures. 5. Anxiety, chronic, stable -continue home regimen of Apresoline 1 mg t.i.d. as needed, hydroxyzine 75 mg t.i.d. as needed and trazodone 50 mg at bedtime. 6. Constipation, chronic, stable -laxative dependent taking senna docusate sodium 1 tablet daily at bedtime. VTE prophylaxis: Anticoagulated on Eliquis IV fluid: will stop today. Diet: CLD Code status: Full code, patient designates her Guillermo Otero to be her surrogate decision maker COVID-19 COVID-19 status: Negative
--- NOTE | 2020-10-12 16:11 | PC.NURSE ---
Addendum entered by Ana Hinton R.N. 10/12/20 23:36: Pt med at 1900 for discomfort and nausea. Tearful. wanting to go home. Tolerating clear liq. well. Ambulated in hallway w/. Resting quietly @ this time Call light w/in reach, pt calls apprpriately for needs. Continue w/plan of care. Original Note: Pt presents anxious due to hospitalization, statong no one is telling me anything Pt questions answered as best possible' IV D5 @ 25cc/hr infusing into right hand via pump w/o incidence. Med w/zofran for nausea & vistaril for anxiety per pt request. Lungs clear, SpO2 96% RA Call light w/in reach, pt calls appropriately for needs.
--- NOTE | 2020-10-12 16:44 | DIET.PN ---
Dietary Progress Note Assessment: 45y F admitted after 3 ED visits for acute on chronic pancreatitis referred to nutrition for recent unintentional weight loss. Pt reports having ongoing pancreatitis flares for the past 6mo c 20.8% unintentional weight loss over that time. Pt feels she is fatigued and weak in comparison to her baseline. Pt reports wine gives her headaches and makes her stomach hurt so she avoids it. Pt reports drinking a lot of water, is careful about fat, does not eat red meat, cuts skin and fat off of turkey and chicken. Pt seems to tolerate almond milk. Pt doesn't seem to know what causes these attacks and is worried she has lost so much weight. HT: 160cm WT: 72kg UBW: 90.9kg 6mo ago, (-20.8% unintentional, severe) BMI: 28.1 Labs: admit lipase 7500 H MNA:10 @ risk Arsen: 19 Nutrition Diagnosis: Severe Acute on Chronic Malnutrition r/t poor POs secondary to repeat chronic pancreatitis aeb 20.8% unintentional weight loss in 6mo (severe), pt seen in ED 3x in 1mo for same, pt reports prolonged periods NPO or on clear liquid diet equating to <75% EER for 6mo, and weakness with moderate muscle losses in temples, deltoids, and trunk, pt reports not knowing what causes her pancreatitis. Interventions: 1. Recc ONS Ensure Clear tid to support preservation of LBM providing 25% PRO needs while on clear liquid diet. 2. RD will f/u c pt in morning to discuss pancreatitis MNT instructions using handout and meal plan. 3. Recc pt try pea based protein powder smoothie using soy milk and banana to promote LBM and increase strength. Diet Order: Clears EER: 90g PRO (1.3g/kg per PCM), Monitoring/Evaluations: RD f/u for more education
[2020-10-12] MEDS: METOCLOPRAMIDE 10 MG/2 ML INJ IV (17:07)
[2020-10-12] MEDS: LIPASE/PROTEASE/AMYLASE 5/17/24 CAP PO (17:08)
[2020-10-12 19:50] VITALS: BP 136/74; PULSE 96; RESP 16; TEMP 36.8; O2SAT 97
[2020-10-12] MEDS: DOCUSATE 100 MG CAPSULE PO (20:23)
[2020-10-12] MEDS: SENNOSIDES 8.6 MG TABLET PO (20:23)
[2020-10-13 02:04] VITALS: BP 111/59; PULSE 70; RESP 16; TEMP 36.3; O2SAT 96
--- NOTE | 2020-10-13 02:07 | PC.NURSE ---
Patient is alert and oriented although very drowsy and slow to respond. Breath sounds CTA with RA sat of 96%. HRR. Denies nausea. BT hypoactive; abdomen is soft and non tender. Denies dysuria, frequency or urgency with urination. Moving self in bed and is up to bathroom independently and steady on feet. Denies pain. Refusing SCD's so reminded to ankle wave when awake. Refusing to be on continuous oximetry. Fall risk score is moderate; instructed to call for assistance if feeling weak, dizzy or lightheaded.
[2020-10-13 05:49] LABS: Add Manual Diff / Slide Review NO; Basophils Absolute Auto 100 /uL (0-100); Basophils Percent Auto 0.8 % (0-2); Eosinophils Absolute Auto 300 /uL (0-450); Eosinophils Percent Auto 4.1 % (2-4); Hematocrit 38.5 % (36-46); Hemoglobin 12.7 g/dL (12.0-16.0); Lymphocytes Absolute Auto 3100 /uL (1100-4500); Lymphocytes Percent Auto 47.9 % (25-40); Mean Corpuscular Hemoglobin 28.6 PG (26-34); Mean Corpuscular Volume 86.7 fL (80-100); Monocytes Absolute Auto 700 /uL (0-900); Monocytes Percent Auto 10.3 % (3-14); Neutrophils Absolute Auto 2400 /uL (1500-7000); Neutrophils Percent Auto 36.9 % (50-75); Platelet Count 212 X10^3/uL (150-400); Red Blood Cell Count 4.44 X10^6/uL (4.0-5.2); Red Cell Distribution Width 14.7 % (11.6-14.8); White Blood Cell Count 6.4 X10^3/uL (4.5-11.0)
[2020-10-13 05:57] VITALS: BP 102/44; PULSE 76; RESP 16; TEMP 36.6; O2SAT 96
[2020-10-13 05:58] LABS: Alanine Aminotransferase 9 IU/L (<35); Albumin 3.4 g/dL (3.5-5.0); Alkaline Phosphatase 86 U/L (38-126); Aspartate Aminotransferase 45 IU/L (14-36); BUN Creatinine Ratio 6.9 (6-22); Bilirubin Total 0.4 mg/dL (0.2-1.3); Bilirubin Unconjugated 0.2 mg/dL (0.0-1.1); Blood Urea Nitrogen 5 mg/dL (7-17); Calcium 8.8 mg/dL (8.4-10.2); Carbon Dioxide 29 mmol/L (22-32); Chloride 106 mmol/L (98-107); Estimated Glomerular Filt Rate > 60.0 mL/min (>60); Globulin 3.4 g/dL (1.7-4.1); Glucose 84 mg/dL (70-100); HEMOLYSIS < 15 (0-50); Magnesium 1.7 mg/dL (1.6-2.3); Potassium 3.7 mmol/L (3.4-5.1); Sodium 138 mmol/L (137-145); Total Protein 6.8 g/dL (6.3-8.2)
--- NOTE | 2020-10-13 08:26 | P.DS_ITS ---
History of Present Illness History of Present Illness Date Patient Seen: 10/13/20 Time Patient Seen: 08:26 Chief complaint: throwing up, upper abdomen pain, upper back pain Narrative: As per JOSIAH Zayas: Ms. Brigid Otero is a 45-year-old female with a past medical history significant for pancreatic pseudocyst, pancreatitis, hypertension, anxiety reports chronic low back pain with radiculopathy who presents to the ER with abdominal pain wo rsening over 24 hours and developing nausea vomiting this morning. The patient was admitted to the hospital under similar circumstances on 09/21 and discharged 09/22 diagnosed with a pancreatic pseudocyst. She complains of continuing and unrelenting severe epigastric and right-sided abdominal pain that is somewhat relieved with positioning. The patient was discharged with oral hydromorphone 4 mg every 4-6 hours as needed for pain however the patient ran out of pain medication 2 days ago and is experienced worsening abdominal pain since. She reports the previous hydromorphone dosing was stretched out taking it only at night along Xanax to be able to sleep since she has been unable to establish a primary care provider since her discharge to renew her prescription. The patient states her nausea is secondary to her pain. She in additionally complains of headache for 1 week located in the right parietal head and neck pain with stiffness and tension. She also reports intermittent chest pressure she relates to anxiety. The patient denies complaints of fevers or chills and denies nasal congestion or sore throat. She denies complaints of shortness of breath cough or wheezing. His Joshua pain is noted above nonbloody emesis. She reports occasional constipation and takes senna/docusate at bedtime nightly. She describes lower back pain right greater than left and states that her right leg will go completely numb at times. She reports no history of trauma or falls. The patient does endorse smoking marijuana to help with nausea. The patient reports a history of blood clots and is anticoagulated on Eliquis 5 mg twice daily. Upon arrival to the ER the patient has a temperature of 97.0?, heart rate of 75, blood pressure 146/92, respirations 20 saturating 98% on room air. An ultrasound the abdomen is stained finding heterogeneous appearing pancreas with mild pancreatic ductal dilatation, ill regularly ill-defined cystic lesion at the head of the pancreas. MRI of the abdomen pelvis finds persistent pancreatitis involving the head and use an 8 process, mild sammy pancreatic edema with tracking inferiorly into the right posterior retroperitoneum, the radiologi st further nodes a smaller ovoid fluid collection at the junction of the pancreatic neck and pancreatic body that is 1.4 cm in maximal dimension and previous CT scanning was 1.9 cm likely representing intrapancreatic pseudocyst. Twelve lead EKG reveals sinus rhythm at a rate of 71 without ectopy, left anterior fascicular block, no ST or T-wave changes and no Q-waves evident. On laboratory analysis he has an elevated white count at 15.5 with increased absolute neutrophils 11,200. Hemoglobin is 15.5, hematocrit 45.9 and platelets 318. On electrolytes she has a sodium of 137, potassium 3.9, BUN of 10 and creatinine 0.72. Her nonfasting glucose is 164. Liver functions finds a total bilirubin of 0.3, elevated AST of 48, ALT of 15 and alkaline phosphatase 119. Her albumin is 4.7. Lipase is elevated at 7574. Alcohol level is less than 10. In the ER the patient received hydromorphone 0.5 mg x 4 in 1 mg x 2 along with Toradol, lorazepam and metoprolol per my and Zofran. The patient is admitted to the hospital service for persistent pancreatitis with pancreatic pseudocyst. Discharge Providers Provider Date of admission: 10/10/20 16:58 Discharge Date: 10/13/20 Consults: 10/10/20 18:11 Consult to Dietitian, Adult Routine Comment: Reason For Exam: weight loss, chronic pancreatitis w/pseudocyst 10/10/20 19:49 Consult to Discharge Planning Routine Comment: Consult to CENTER CONSULTANT - Ophthalmic Surgeon Routine Comment: readmit for pancreatitis, no PCP CENTER CONSULTANT Consult: [facility] Res Need 10/10/20 22:03 Consult to Physical Therapy Evaluate & Treat Comment: Low back pain, Rt leg radiculopathy Physician Instructions: Evaluate and Treat Discharge provider: Luis Wesley DO Summary Hospital Course Discharge Diagnosis: Please see hospital course by problem list noted below Hospital Course: This is a 45-year-old female patient who returned to the hospital for worsening abdominal pain after running out of her pain medication 2 days prior to admission. She was admitted with acute on chronic pancreatitis who improved with initial therapy of bowel rest and resumption of pain medication. 1. Acute exacerbation of chronic idiopathic pancreatitis chronic, present on admission, active -patient with continuing abdominal pain since discharge from the hospital on 09/22/2020. The patient has been unable to establish PCP for refill of pain medication has since run out with worsening of pain. - MRI on admission reveals persistent pancreatitis involving head and uncinate process, mild sammy pancreatic edema tracking inferiorly, right posterior retroperitoneum with 1.4 cm intrahepatic pseudocyst. -patient was prescribed hydromorphone 4 mg p.o. every 4-6 hours as needed at time of discharge from previous admission, okay to continue at discharge. -patient was advanced to clear liquids, at which point she was feeling improved and asked to be discharge home. As her pain was controlled and she was tolerating oral intake, this was reasonable. -admission lipase >7000. 2. History of blood clots, current use long-term anticoagulation, not present on admission, stable -patient sources history multiple foci of blood clots. -continue home regimen of Eliquis 5 mg once daily -encouraged smoking cessation. 3. Low back pain with right leg radiculopathy, present on admission, active. -recommend outpatient PT once she establishes with primary care 4. Hypertension, chronic, stable. -blood pressure mildly elevated on admission at 146/92 elevated secondary to uncontrolled pain, with improved pain she is normotensive. She can continue home amlodipine at this time, however I did recommend that she monitor her blood pressures and if normotensive this can be discontinued likely. 5. Anxiety, chronic, stable -continue home regimen of Apresoline 1 mg t.i.d. as needed, hydroxyzine 75 mg t.i.d. as needed and trazodone 50 mg at bedtime. Discharged with a few doses of ativan. 6. Constipation, chronic, stable -laxative dependent taking senna docusate sodium 1 tablet daily at bedtime. 7. Severe Acute on Chronic protein calorie malnutrition -secondary to poor POs secondary to repeat chronic pancreatitis aeb 20.8% unintentional weight loss in 6mo (severe), pt seen in ED 3x in 1mo for same, pt reports prolonged periods NPO or on clear liquid diet equating to <75% EER for 6mo, and weakness with moderate muscle losses in temples, deltoids, and trunk. -appreciate dietary recommendations which included dietary changes and supplements. Exam Vital Signs (past 8 hours): - 10/13/20 02:04 10/13/20 05:57 Temperature 97.3 F L 97.8 F Pulse Rate 70 76 Respiratory Rate 16 16 Blood Pressure 111/59 L 102/44 L Pulse Oximetry 96 96 Oxygen Delivery Method Room Air Oxygen Flow Rate 0 Narrative Exam Narrative: GENERAL APPEARANCE: well developed, well nourished female lying left lateral in position. HEENT: Normocephalic, PERRLA, conjunctiva clear, EOMs intact without nystagmus, mild right maxillary sinus sinus tenderness to percussion, no rhinorrhea, mucous membranes are moist and pink without lesions or exudate. NECK/THYROID: Decreased range of motion, prominent paraspinal cervical muscles, no JVD, no carotid bruit, no thyromegaly, trachea midline. LYMPH NODES: no cervical or supraclavicular lymphadenopathy. SKIN: [place], warm and dry, no visible lesions, rashes, ulcerations or petechiae. HEART: regular rate and rhythm, S1-S2, no murmur, no rubs or gallops, brisk capillary refill, 2+ dorsalis pedis pulses no edema LUNGS: clear to auscultation bilaterally, no coarseness crackles or wheezing, no cough present. CHEST: Symmetrical movement, no accessory muscle use, good tidal volume, no pain on AP lateral compression. ABDOMEN: Soft, no distention, epigastric with right upper and lower abdominal tenderness, no guarding or peritoneal signs, no organomegaly, no flank or suprapubic tenderness, hypoactive bowel tones. BACK: Normal curvature, palpable right lumbar paraspinal muscles, no step-offs or malalignment, no CVA tenderness on percussion EXTREMITIES: moves all extremities, strength is 5/5 and symmetrical, no deformities or joint effusions, no cyanosis or clubbing NEUROLOGIC: AAO x4, no focal neurologic deficits, cranial nerves II-XII grossly intact, sensation intact to light touch, hearing grossly normal to speech. PSYCH: Mildly anxious, cooperative with stable behavior. Objective Labs Result Diagrams: 10/13/20 05:25 10/13/20 05:25 Labs: Laboratory Results - last 24 hr 10/13/20 10/13/20 05:25 05:25 WBC 6.4 RBC 4.44 Hgb 12.7 Hct 38.5 MCV 86.7 MCH 28.6 MCHC 33.0 RDW 14.7 Plt Count 212 Neut % (Auto) 36.9 L Lymph % (Auto) 47.9 H [place] % (Auto) 10.3 Eos % (Auto) 4.1 H Baso % (Auto) 0.8 Neut # (Auto) 2400 Lymph # (Auto) 3100 [place] # (Auto) 700 Eos # (Auto) 300 Baso # (Auto) 100 Sodium 138 Potassium 3.7 Chloride 106 Carbon Dioxide 29 BUN 5 L Creatinine 0.72 Estimated GFR > 60.0 BUN/Creatinine Ratio 6.9 Glucose 84 Calcium 8.8 Magnesium 1.7 Total Bilirubin 0.4 Conjugated Bilirubin 0.0 Unconjugated Bilirubin 0.2 AST 45 H ALT 9 Alkaline Phosphatase 86 Total Protein 6.8 Albumin 3.4 L Globulin 3.4 Albumin/Globulin Ratio 1.0 [facility] Medical History (Updated 10/10/20 @ 22:11 by JOSIAH Zayas) Anxiety Benign essential HTN Chronic low back pain Chronic pancreatitis Current use of summer intern anticoagulation History of blood clots Pancreatic pseudocyst Surgical History History of appendectomy History of arthroscopy of both knees History of carpal tunnel release History of hysterectomy History of tubal ligation Hx of removal of ovary Family History Mother Heart attack COPD (chronic obstructive pulmonary disease) Hyperlipidemia Hypertension Father Alcoholism and drug addiction in family Brother Diabetes mellitus Murder of relative Brother No problems noted. Social History household members: spouse Smoking Status: Current every day smoker alcohol intake: never Discharge Plan Discharge Plan Patient Disposition: Home Provider Discharge Comment: You were admitted to the hospital with acute on chronic pancreatitis. Watch your diet carefully, continue pain medications and try and follow up with a provider in [place] as soon as possible. Discharge orders & Medications Prescriptions: New amlodipine 5 mg tablet 5 mg PO DAILY 30 Days Qty: 30 RF: 0 Continued senna-docusate sodium Tablet 1 tab PO BEDTIME RF: 0 trazodone 50 mg Tablet 50 mg PO BEDTIME PRN (Reason: Insomnia) 14 Days Qty: 14 RF: 0 alprazolam [Xanax] 0.5 mg Tablet 1 mg PO TID PRN (Reason: Anxiety) 7 Days Qty: 15 RF: 0 hydromorphone 2 mg tablet 4 mg PO Q4-6H PRN (Reason: Abdominal Pain) 7 Days Qty: 40 RF: 0 pantoprazole [Protonix] 40 mg Tablet,Delayed Release (Dr/Ec) 40 mg PO DAILY 30 Days Qty: 30 RF: 0 hydroxyzine HCl 25 mg Tablet 75 mg PO TID PRN (Reason: Anxiety) 7 Days Qty: 24 RF: 0 Eliquis 5 mg Tablet 5 mg PO BID 30 Days Qty: 60 RF: 0 Discontinued losartan 50 mg Tablet 50 mg PO BID RF: 0 amlodipine 10 mg Tablet 10 mg PO DAILY RF: 0 Follow up/Referrals: Sravan Phipps MD [Physician] - 10/20/20 9:30 am (appt:10/20 @ 9:30 (arrive @ 9:15 ) with dr phipps @ [facility] [place] this will be a hospital follow up- you will need to speak with him at that time to establish care with him) Diet/Activity/Treatments Diet: Diet as Tolerated and Low-fat Activity: As tolerated Visit Report/Discharge Packet Instructions: Chronic Pancreatitis, Fat-Restricted Diet, DI for Pancreatitis
--- NOTE | 2020-10-13 09:21 | DIET.PN ---
Dietary Progress Note RD provided pancreatitis MNT c reccs for protein supplement to preserve LBM.
[2020-10-13 09:35] VITALS: BP 106/67; PULSE 71; RESP 14; TEMP 36.3; O2SAT 99
[2020-10-13] MEDS: APIXABAN 5 MG TABLET PO (09:50)
--- NOTE | 2020-10-13 10:50 | PT-IP ANOTE ---
Attempted to see patient at 10:50 AM, but patient had already d/c.
--- NOTE | 2020-10-13 12:41 | CM.DPNOTE ---
DC Note DC in place and patient plans to return home w/spouse today, no needs identified from this OFFICE ADMINISTRATION INSTRUCTOR. This OFFICE ADMINISTRATION INSTRUCTOR requested that SONU Gant assist in securing an appt. at [facility] to establish w/any provider accepting new patients, Alfreda kindly obliged and patient has an appt w/Dr Sravan Hicks . at 0930 JW
--- NOTE | 2020-10-13 13:27 | PC.NURSE ---
Feels ready to d/c home. Still has some abd tenderness and pain. Pt reports she has a chronic pancreatitis, no one is sure why. Reviewed d/c packet. RX was esent and pt was shown this. Questions answered. D/c home with family.
== END 2020-10-13 10:30 | disposition home or self-care (01) | DRG 438 ==
LOC: ED 16:49 → AC 17:01
PROVIDERS: Internal Medicine; Nurse Practitioner Adult Health; Admitting Provider Internal Medicine; Emergency Provider Nurse Practitioner; Referring Provider Nurse Practitioner; Visit Provider Internal Medicine
DX: K85.00 Idiopathic acute pancreatitis without necrosis or infection (principal); E43 Unspecified severe protein-calorie malnutrition; K86.1 Other chronic pancreatitis; M54.41 Lumbago with sciatica, right side; I10 Essential (primary) hypertension; F41.9 Anxiety disorder, unspecified; F17.210 Nicotine dependence, cigarettes, uncomplicated; K59.00 Constipation, unspecified; Z86.2 Personal history of diseases of the blood and blood-forming organs and certain disorders involving the immune mechanism; Z79.01 Long term (current) use of anticoagulants; Z20.822 Contact with and (suspected) exposure to COVID-19
CPT/HCPCS: 36415; 74183; 76705; 80048; 80053; 80076; 80320; 81003; 82962; 83690; 83735; 85025; 87635; 93005; 94762; 96361; 96374; 96375; 96376; 97116; 97161; 99284; C9803; A9270; C9113; J1170; J1885; J2060; J2405; J2765

== ENCOUNTER → 2020-10-31 11:32 | Outpatient (CLI) | payer BC, SELFPAY ==
[2020-10-13 10:12] VITALS: BMI 23.9
--- NOTE | 2020-10-31 11:33 | DI.MRI.S_ITS ---
PROCEDURE: MR HEAD/BRAIN WO/W CON INDICATIONS: Numbness, weakness TECHNIQUE: Noncontrast axial T1 spin echo, axial T2 fast spin echo, sagittal and axial FLAIR, coronal T2 fast spin echo, axial gradient echo, axial diffusion and ADC through the brain. After the administration of contrast, axial and coronal 3D VIBE or T1 spin echo with fat saturation through the brain. COMPARISON: None. FINDINGS: Image quality: Excellent. CSF Spaces: Basal cisterns are patent. No extra-axial fluid collections. Ventricles are normal in size and shape. Brain: No midline shift. No intracranial bleeds or masses. No abnormal intracranial enhancement. The brainstem appears normal. Diffusion-weighted images demonstrate no acute ischemic insults. No chronic ischemic insults. Normal intravascular flow voids are present. Skull and face: Calvarial marrow is normal in signal. Orbits appear normal. Sinuses: Sinuses and mastoids appear clear. IMPRESSION: No imaging explanation is found for this patient's presenting symptoms. No masses or abnormal enhancement can be seen. No findings of acute or subacute infarction can be seen. Dictated by: Jean Herbert M.D. on 10/31/2020 at 11:25 Approved by: Jean Herbert M.D. on 10/31/2020 at 11:26
== END ==
PROVIDERS: PCP Family Medicine; Referring Provider Family Medicine; Visit Provider Family Medicine
DX: R53.1 Weakness (principal); R20.0 Anesthesia of skin
CPT/HCPCS: 70553

== ENCOUNTER 2021-04-04 11:45 | Emergency (ER) | payer BC, SELFPAY ==
[2021-03-28 09:23] VITALS: BMI 23.9
[2021-04-04 12:05] VITALS: BP 155/88; PULSE 94; RESP 18; TEMP 36.4; O2SAT 95; BMI 28.3
[2021-04-04 12:41] LABS: Add Manual Diff / Slide Review NO; Basophils Absolute Auto 200 /uL (0-100); Basophils Percent Auto 1.2 % (0-2); Eosinophils Absolute Auto 200 /uL (0-450); Hematocrit 46.5 % (36-46); Hemoglobin 15.7 g/dL (12.0-16.0); Lymphocytes Absolute Auto 2800 /uL (1100-4500); Lymphocytes Percent Auto 22.6 % (25-40); Mean Corpuscular HGB Conc 33.9 % (30-36); Mean Corpuscular Hemoglobin 27.9 PG (26-34); Mean Corpuscular Volume 82.4 fL (80-100); Monocytes Absolute Auto 700 /uL (0-900); Monocytes Percent Auto 5.5 % (3-14); Neutrophils Absolute Auto 8500 /uL (1500-7000); Neutrophils Percent Auto 68.7 % (50-75); Platelet Count 302 X10^3/uL (150-400); Red Blood Cell Count 5.65 X10^6/uL (4.0-5.2); Red Cell Distribution Width 14.6 % (11.6-14.8); White Blood Cell Count 12.5 X10^3/uL (4.5-11.0)
[2021-04-04 12:44] LABS: Alanine Aminotransferase 22 IU/L (<35); Albumin 4.7 g/dL (3.5-5.0); Albumin Globulin Ratio 1.1 (1.0-2.8); Alkaline Phosphatase 109 U/L (38-126); Aspartate Aminotransferase 74 IU/L (14-36); BUN Creatinine Ratio 18.7 (6-22); Bilirubin Total 0.7 mg/dL (0.2-1.3); Blood Urea Nitrogen 14 mg/dL (7-17); Calcium 9.6 mg/dL (8.4-10.2); Carbon Dioxide 22 mmol/L (22-32); Chloride 106 mmol/L (98-107); Estimated Glomerular Filt Rate > 60.0 mL/min (>60); Globulin 4.2 g/dL (1.7-4.1); Glucose 139 mg/dL (70-100); HEMOLYSIS 26 (0-50); Lipase 271 U/L (23-300); Sodium 137 mmol/L (137-145); Total Protein 8.9 g/dL (6.3-8.2)
== END 2021-04-04 14:22 | disposition left against medical advice (07) ==
PROVIDERS: Emergency Provider Emergency Medicine; PCP Family Medicine
DX: R10.9 Unspecified abdominal pain (principal); Z79.01 Long term (current) use of anticoagulants
CPT/HCPCS: 36415; 80053; 83690; 85025; 93005; 99283

== ENCOUNTER → 2021-04-05 15:55 | Outpatient (CLI) | payer BC, SELFPAY ==
[2021-03-28 09:23] VITALS: BMI 23.9
--- NOTE | 2021-04-05 16:20 | DI.CT.S_ITS ---
PROCEDURE: CT ABDOMEN W CON INDICATIONS: acute abdominal pain, pancreatic pseudocyst TECHNIQUE: After the administration of oral and intravenous contrast, 5 mm thick sections acquired from the diaphragms to the iliac crests. 5 mm thick coronal and sagittal reformats were acquired. For radiation dose reduction, the following was used: automated exposure control, adjustment of mA and/or kV according to patient size. COMPARISON: [facility], MR, MR ABDOMEN WO/W CON, 10/10/2020, 15:32. FINDINGS: Image quality: Excellent. Lung bases: Lung bases are clear. Heart size is normal. Solid organs: Liver is enlarged in size at 22 cm craniocaudad but normal in enhancement. Gallbladder does not appear inflamed or distended . Biliary system is non dilated. Pancreas enhances normally at the pancreatic head but the pancreatic body and tail is abnormal with indistinct interlobular margination and peripancreatic edema tracking both cephalad into the gastrohepatic ligament and caudad into the left Kandice renal space.. This edema pattern disallows clear visualization of the previously identified small posterior pancreatic fluid collection that has been followed by CT and MR. Spleen is prominent in size and normal in enhancement. No adrenal nodules. Kidneys are normal in size, without hydronephrosis. Peritoneum and bowel: Contrast enhanced bowel loops appear normal in caliber. No free fluid or air. Nodes and vessels: No retroperitoneal or mesenteric adenopathy by size criteria. Aorta and inferior vena cava are normal in size. Bones: No suspicious bony lesions. No vertebral body compression fractures. Miscellaneous: No ventral hernias. IMPRESSION: Acute pancreatitis, moderate in severity, involving the pancreatic body and tail. No pancreatic ductal distension is present. A previously identified small posterior pancreatic fluid collection is not visualized currently due to adjacent edema. This likely is an incidental finding unrelated to that fluid collection. Hepatic enlargement at 22 cm craniocaudad. The spleen is at or just above the upper limits of normal in volume. No cholecystitis or visualized calcified gallstones within the gallbladder lumen. Dictated by: René Duron M.D. on 04/05/2021 at 17:51 Approved by: René Duron M.D. on 04/05/2021 at 17:59
== END ==
PROVIDERS: PCP Family Medicine; Referring Provider Family Medicine; Visit Provider Family Medicine
DX: K85.90 Acute pancreatitis without necrosis or infection, unspecified (principal); K55.069 Acute infarction of intestine, part and extent unspecified; K86.3 Pseudocyst of pancreas; I81 Portal vein thrombosis; R16.0 Hepatomegaly, not elsewhere classified
CPT/HCPCS: 74160; Q9967

== ENCOUNTER → 2021-04-25 10:52 | Outpatient (CLI) | payer BC, SELFPAY ==
[2021-03-28 09:23] VITALS: BMI 23.9
[2021-04-25 11:30] LABS: Add Manual Diff / Slide Review NO; Basophils Absolute Auto 100 /uL (0-100); Basophils Percent Auto 1.2 % (0-2); Eosinophils Absolute Auto 400 /uL (0-450); Eosinophils Percent Auto 4.5 % (2-4); Hematocrit 46.5 % (36-46); Hemoglobin 15.8 g/dL (12.0-16.0); Lymphocytes Absolute Auto 3100 /uL (1100-4500); Lymphocytes Percent Auto 33.9 % (25-40); Mean Corpuscular Hemoglobin 27.8 PG (26-34); Mean Corpuscular Volume 81.9 fL (80-100); Monocytes Absolute Auto 700 /uL (0-900); Monocytes Percent Auto 7.6 % (3-14); Neutrophils Absolute Auto 4900 /uL (1500-7000); Neutrophils Percent Auto 52.8 % (50-75); Platelet Count 271 X10^3/uL (150-400); Red Blood Cell Count 5.68 X10^6/uL (4.0-5.2); Red Cell Distribution Width 14.2 % (11.6-14.8); White Blood Cell Count 9.2 X10^3/uL (4.5-11.0)
[2021-04-25 12:29] LABS: Alanine Aminotransferase 15 IU/L (<35); Albumin 4.1 g/dL (3.5-5.0); Albumin Globulin Ratio 1.1 (1.0-2.8); Alkaline Phosphatase 104 U/L (38-126); Aspartate Aminotransferase 55 IU/L (14-36); BUN Creatinine Ratio 17.9 (6-22); Bilirubin Total 0.4 mg/dL (0.2-1.3); Blood Urea Nitrogen 15 mg/dL (7-17); Calcium 9.3 mg/dL (8.4-10.2); Carbon Dioxide 21 mmol/L (22-32); Chloride 106 mmol/L (98-107); Cholesterol 219 mg/dL (140-199); Estimated Glomerular Filt Rate > 60.0 mL/min (>60); Globulin 3.6 g/dL (1.7-4.1); Glucose 160 mg/dL (70-100); HDL Cholesterol 20 mg/dL (40-60); HEMOLYSIS < 15 (0-50); LDL Cholesterol Calculated 132 mg/dL (<100); Potassium 3.8 mmol/L (3.4-5.1); Sodium 136 mmol/L (137-145); Total Protein 7.7 g/dL (6.3-8.2); Triglycerides 334 mg/dL (35-150)
== END ==
PROVIDERS: PCP Family Medicine; Referring Provider Family Medicine; Visit Provider Family Medicine
DX: E78.5 Hyperlipidemia, unspecified (principal); I81 Portal vein thrombosis; K55.069 Acute infarction of intestine, part and extent unspecified; K85.90 Acute pancreatitis without necrosis or infection, unspecified; K86.3 Pseudocyst of pancreas
CPT/HCPCS: 36415; 80053; 80061; 85025

== ENCOUNTER → 2021-05-02 12:31 | Outpatient (CLI) | payer BC, SELFPAY ==
[2021-03-28 09:23] VITALS: BMI 23.9
--- NOTE | 2021-05-02 12:33 | DI.CT.S_ITS ---
PROCEDURE: CT ANGIO ABDOMEN INDICATIONS: portal vein thrombosis TECHNIQUE: After the administration of intravenous contrast, 2.5 mm thick sections acquired from the diaphragm to the symphysis. 10 mm maximum-intensity projection (MIP) reformats were then acquired. For radiation dose reduction, the following was used: automated exposure control. COMPARISON: [facility], CT, CT ABDOMEN W CON, 04/05/2021, 17:15. FINDINGS: Image quality: Excellent. Aorta: The aorta has diffuse atherosclerotic disease which appears relatively mild, there is no stenosis or aneurysm. No dissection. 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 The SMA is patent. The VALENCIA is patent. Right pelvic arteries: Patent. Left pelvic arteries: Patent. Portal vein: The portal vein is not well assessed since this procedure is performed in the arterial angiographic stage. The portal vein is not opacified. Lung bases: Lung bases are clear. Heart size is normal. Solid organs: Liver: The liver has no mass or intrahepatic biliary ductal dilatation. The portal vein and hepatic veins are patent. Biliary: The gallbladder has no gallstones, pericholecystic fluid, gallbladder wall thickening, or surrounding inflammatory change. Pancreas: The pancreatic body and tail demonstrate surrounding opacity similar to the prior CT on 04/05/2021 consistent with pancreatitis. No pancreatic ductal dilatation. Spleen: Normal size. There are no masses. Adrenals: No hypertrophy or nodules. Kidneys: No obstructive calculus or hydronephrosis. No solid mass. No cystic mass. Peritoneum and bowel: The distal esophagus is normal. The stomach has no mass or mucosal abnormality. The inflammation anterior to the pancreas extends to the posterior stomach. The small bowel has a normal caliber and appearance. The terminal ileum is normal. The large bowel has no abnormality in the visualized portion.. No free air. Nodes: No retroperitoneal or mesenteric adenopathy by size criteria. Miscellaneous: No abdominal wall mass or hernia. Bones: No suspicious bony lesions. No vertebral body compression fractures in. There is disc space loss and degenerative changes of L5-S1 with anterior and posterior disc osteophytes causing severe foraminal stenosis and moderate central canal stenosis. IMPRESSION: 1. Increased attenuation of the fat around the body and tail of the pancreas most consistent with inflammation from pancreatitis. Please correlate with clinical history of pancreatitis. 2. The portal vein is not well visualized due to the arterial phase of this study. 3. 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 The SMA and VALENCIA are patent. Dictated by: Driss Luna M.D. on 05/02/2021 at 16:34 Approved by: Driss Luna M.D. on 05/02/2021 at 16:56
[2021-05-02 13:59] LABS: Hemoglobin A1C% w Est Avg Glu 6.2 % (4.0-6.0)
== END ==
PROVIDERS: PCP Family Medicine; Referring Provider Family Medicine; Visit Provider Family Medicine
DX: K55.069 Acute infarction of intestine, part and extent unspecified (principal); I81 Portal vein thrombosis; R73.9 Hyperglycemia, unspecified
CPT/HCPCS: 36415; 74175; 83036; Q9967